=== PATIENT | male | born 1985 | race Caucasian/White ===

== ENCOUNTER 2017-04-03 12:08 | Emergency (ER) | payer SELFPAY ==
[~2017-04-03] VITALS: Ht 177.8 cm; Wt 68.0 kg
[~2017-04-03 12:08] MED LIST: ACET325S8 PO; TAMS0.4C67 PO
[2017-04-03 12:10] VITALS: BP 108/74; PULSE 78; RESP 16; TEMP 98.2; O2SAT 98
--- NOTE | 2017-04-03 12:21 | PD ---
Physical Exam Time Seen by Provider: 12:19 Narrative 31yo M c/o of laceration to left juarez after falling approx 5 feet off a ladder today. Denies hitting head, LOC, neck pain, back pain. +R rib cage pain, R forearm pain. Denies SOB. Reports pain with deep breathing. [place] lightheaded after fall, but denies now. Patient seen in triage. VS reviewed. Patient awaiting bed placement. Data Data Last Documented VS Vital Signs Date Time Temp Pulse Resp B/P Pulse Ox O2 Delivery O2 Flow Rate FiO2 04/03/17 12:10 98.2 78 16 108/74 98 MDM Supervised Visit with MIGUEL ANGEL: Geovanna Burleson Apr 03, 2017 12:21
[2017-04-03] MEDS ORDERED: ACETAMINOPHEN/HYDROcodone 325 MG/5 MG TAB PO ONE ×2 (13:30→15:15)
[2017-04-03] MEDS ORDERED: LIDOCAINE 1%/EPINEPHrine 1:100,000 SOLN 20 ML VIAL INFIL ONE (13:30)
[2017-04-03] MEDS ORDERED: KETOROLAC TROMETHAMINE 30 MG/ML (IVP) VIAL IVP ONE (13:30)
[2017-04-03] MEDS ORDERED: TETANUS/DIPHTHERIA TOXOID ADULT 0.5 ML VIAL IM ONE (13:30)
--- NOTE | 2017-04-03 13:38 | PD ---
HPI Chief Complaint: Fall Time Seen by Provider: 13:28 Travel History International Travel<30 days: No Contact w/Intl Traveler<30days: No Traveled to known affect area: No History of Present Illness HPI Patient comes in for evaluation status post fall from ladder. He states he was standing top of for 6 foot ladder when part of the roof that he was working on fell hitting him in the left juarez causing him to lose his balance falling off a ladder landing on his right rib cage and forearm on the ladder. Patient complaining of pain over his left tibia, right forearm, and right rib cage. Patient describes pain is sharp stabbing like in nature is worse with palpation and certain movement. Patient uncertain of his last tetanus shot. Patient denies doing anything for this prior to coming to the emergency department. Denies hitting his head, loss conscious, back pain, neck pain, abdominal pain, or shortness of breath. Patient reports rib pain is worse with deep inspiration certain movement. PFSH Past Medical History Arthritis: No Asthma: No Autoimmune Disease: No Blood Disorders: No Heart Rhythm Problems: No Cancer: No Cardiovascular Problems: No High Cholesterol: No Chest Pain: No Congestive Heart Failure: No COPD: No Cerebrovascular Accident: No Diabetes: No Diminished Hearing: No Endocrine: No Gastrointestinal Disorders: Yes (stomach pain with diarrhea) GERD: No Glaucoma: No Genitourinary: Yes (KIDNEY STONES) Headaches: No Hepatitis: Yes (hep c) Hiatal Hernia: No Hypertension: No Immune Disorder: No Inguinal Hernia: Yes (RIGHT GROIN REPAIRED) Kidney Stones: Yes Musculoskeletal: Yes (fx both wrists age 14 & 15 & 28, broken jaw, broken ribs ) Neurologic: No Psychiatric: No Reproductive: No Respiratory: No Immunizations Current: Yes Migraines: Yes Myocardial Infarction: No Renal Failure: No Seizures: No Sleep Apnea: No Thyroid Disease: No Ulcer: No Tetanus Vaccination: < 5 Years Influenza Vaccination: Yes Past Surgical History Abdominal Surgery: Yes (hernia RIGHT GROIN) AICD: No Body Medical Devices: metal in jaw and r wrist, RIGHT KIDNEY STENT Cardiac Surgery: No Ear Surgery: Yes Endocrine Surgery: No Eye Surgery: No Genitourinary Surgery: Yes (lithotripsy X 2, STENT) Gynecologic Surgery: No Joint Replacement: No Neurologic Surgery: No Oral Surgery: Yes (fx. jaw 2004) Pacemaker: No Thoracic Surgery: No Tonsillectomy: Yes Other Surgery: Yes (PINS AND PLATE IN BILATERAL WRIST) Social History Alcohol Use: No Tobacco Use: Yes (/2 PPD) Substance Use: No (marijuana occasionally ) Allergies-Medications (Allergen,Severity, Reaction): Coded Allergies: Morphine (Verified Allergy, Mild, rash, 04/03/17) Uncoded Allergies: icy hot (Adverse Reaction, Mild, Rash., 06/12/16) Reported Meds & Prescriptions Reported Meds & Active Scripts Active Bactrim DS (Sulfamethoxazole-Trimethoprim) 800-160 Mg Tab 1 Tab PO BID Lortab (Hydrocodone-Acetaminophen) 5-325 Mg Tab 1 Tab PO Q8HR PRN Ibuprofen 800 Mg Tab 800 Mg PO Q8H PRN Tylenol (Acetaminophen) 325 Mg Tab 650 Mg PO Q6HR PRN Flomax (Tamsulosin HCl) 0.4 Mg Cap 0.4 Mg PO DAILY 10 Days Review of Systems Except as stated in HPI: all other systems reviewed are Neg Physical Exam Narrative GENERAL: Well-developed, well nourished, in no acute distress, and non-ill appearing. SKIN: Laceration noted left anterior juarez. No obvious foreign body or bony involvement noted. Patient reports tenderness to palpation around. Contusion of the right forearm. Patient's reported pain around site of contusion. There is no crepitus or step-off noted. HEAD: Atraumatic. Normocephalic. EYES: Pupils equal and round. EOMI. No scleral icterus. No injection or drainage. ENT: No nasal bleeding or discharge. Mucous membranes pink and moist. NECK: Trachea midline. Supple. No nuclear rigidity. CARDIOVASCULAR: Regular rate and rhythm. No murmur appreciated. Radial dorsal pulses are 2+, intact, and equal bilaterally. Capillary refill less than 2 seconds. RESPIRATORY: No accessory muscle use. No respiratory distress. Clear to auscultation. Breath sounds equal bilaterally. GASTROINTESTINAL: Abdomen soft, non-tender, nondistended. Hepatic and splenic margins not palpable. No pulsatile mass. MUSCULOSKELETAL: No obvious deformities. No clubbing. No cyanosis. No edema. Full range of motion. Nontender to palpation bilateral elbows. Wrist: FROM and equal BL with passive flexion, extension, and pronation/supination. Capillary refill less than 2 seconds distal to injury and equal BL. FROM distal to injury and equal BL. Strength distal to injury equal BL. NV intact distal to injury. Flexion and extension of thumb equal BL. Equal strength and movement with abduction/adductions of BL fingers. Preparation Room Worker strength equal BL. No tenderness to the anatomical snuffbox. Ankle: Neagative anterior draw and Lieberman test. Negative Buddy's sign. No laxity noted with passive inversion and eversion of BL ankles. Negative squeeze test. Pulses equal BL distal to injury. Capillary refill less than 2 seconds distal to injury and equal BL. Sensation equal BL 1st web space. FROM of toes distal to injury and equal BL. NV intact distal to injury and equal BL. Dorsal pulses equal BL. Patient reports tenderness over the midshaft right ulna small bump noted. There is no crepitus or step-off noted. Patient reports tenderness to palpation over right lateral rib cage. There is no crepitus or step-off. Patient reports tenderness palpation around laceration left juarez. No tenderness or crepitus throughout spinal column. Pelvic stable. NEUROLOGICAL: Awake and alert. No obvious cranial nerve deficits. Motor grossly within normal limits. Normal speech. PSYCHIATRIC: Appropriate mood and affect; insight and judgment normal. Data Data Last Documented VS Vital Signs Date Time Temp Pulse Resp B/P Pulse Ox O2 Delivery O2 Flow Rate FiO2 04/03/17 12:53 18 99 Room Air 04/03/17 12:10 98.2 78 108/74 Orders Acetamin-Hydrocod 325-5 Mg ([place] 5-325 (04/03/17 13:30) Ketorolac Inj (Toradol Inj) (04/03/17 13:30) Tetanus/Diphtheria Tox Adult (Tetanus/Di (04/03/17 13:30) Lidocai-Epi 1%-1:100,000 Inj (Xylocaine- (04/03/17 13:30) Resp Incentive Spirometry (04/03/17 ) Ribs, Uni (W/Exp Cxr-Min 3vw) (04/03/17 ) Tibia/Fibula (Ap/Lat) (04/03/17 ) Forearm (2vws) (04/03/17 ) Lidocai-Epi 1%-1:100,000 Inj (Xylocaine- (04/03/17 14:13) Acetamin-Hydrocod 325-5 Mg ([place] 5-325 (04/03/17 15:15) MDM Medical Decision Making Medical Screen Exam Complete: Yes Emergency Medical Condition: Yes Interpretation(s) Rib x-rays read by the radiologist shows: No evidence of acute fracture. Right forearm x-ray read by the radiologist shows: Old distal radius and ulna fractures with internal fixation plate in the distal radius. No acute fracture identified. X-ray of the left tib-fib read by the radiologist shows: No evidence of fracture. Differential Diagnosis Fracture, strain, contusion, laceration, open fracture, foreign body, pneumothorax, other Narrative Course The patient suffered a rib contusion. There is no clinical evidence to suggest intrathoracic injury nor cardiac injury at this time. The patient has no significant pain, shortness of breath or dyspnea. The patient moves air well without difficulty and is clear to auscultation. Heart sounds are audible without rubs, murmurs or gallops. There is no palpable crepitus. Pulses are symmetrical and strong. There is no significant tenderness over the lower chest to suggest injury to the liver nor spleen. Chest X-ray was normal without evidence of fracture, pneumothorax or hemothorax. The Mediastinum appeared within normal limits. Diagnosis was discussed with the patient. The patient is to return if develops any worsening pain difficulty breathing, or if coughs up blood or develops fever. Patient agrees with plan and was recommended to follow up with their regular physician. The patient appears to have suffered a contusion of the right forearm. There is no clinical evidence to suspect bony injury by exam. Radiographic examination revealed no fracture seen at this time. The patient has full range of motion on active and passive motions. There is no significant edema. There is no proximal or distal joint effusion. The distal extremity appears neurovascularly intact, without evidence of neurovascular injury nor compartment syndrome. Tendon exam also was intact. The patient was discharged on pain medication instructions and given warnings for vascular compromise. The patient is to follow up with their regular physician. The patient agrees with plan. The patient suffered laceration to the leg. There was no evidence to suggest foreign bodies. Visual, tactile and radiographic exams were unremarkable without evidence of foreign body at this time. There was no evidence of neurovascular injury. The patient had a normal distal vascular exam, and had full normal motor and sensory exams. There was also no evidence or tendon injury , with normal distal full range of motions, flexion, extension, abduction, adduction and opponens. There was no evidence of local joint space involvement at this time. The patient was irrigated with copious sterile normal saline and primary repair was performed. Please see procedure note. The patient was given signs and symptom warnings for infection, such as increasing pain, redness, swelling, associated heat, pus or fever. The patient was warned of possible unseen foreign body and instructed to return immediately if signs or symptoms develop. The patient was given instructions for timely follow up and for removal. The patient agreed with plan of care. Patient in no obvious distress upon re-evaluation. All pertinent Radiology result(s) discussed with patient. Discussed patient with Dr. Velasquez prior to discharge, who is in agreement with plan of care and disposition. Patient was asked if they wanted to speak to my attending, which the patient did not wish to do at this time. Any questions/concerns in reference to patient diagnosis/ condition discussed and clarified prior to patient's discharge. Reinforced sheer importance of close follow up with patient's primary physician or primary care clinic. Instructed patient to return to ED immediately, if symptoms return/ worsen. Pt showed understanding of above instructions. Further instructions and recommendations were detailed in discharge paperwork. Pt ambulated without difficulty out of ED at discharge. Procedures Procedure Narrative LACERATION REPAIR LOCATION: Left juarez LENGTH: Approximately 7 cm in total length NUMBER OF STITCHES/MEDHAT: 12 Medhat REPAIR: Verbal consent was obtained. The area of the laceration was cleaned and prepped. The laceration was infiltrated with a cane with epi. The wound was copiously irrigated and explored without evidence of foreign body, bony involvement, ligament injury, tendon injury, or neurovascular injury. The wound was closed using medhat. This was a single layer repair. A sterile dressing was applied by nurse. The patient was advised to keep the affected area as clean and dry as possible using soap and water. There were no complications. Patient tolerated the procedure well. Diagnosis Primary Impression: Contusion of rib on right side Qualified Code: S20.211A - Contusion of rib on right side, initial encounter Additional Impressions: Contusion of right forearm, initial encounter Laceration of left lower leg without complication Qualified Code: S81.812A - Laceration of left lower leg without complication, initial encounter Fall on and from ladder, initial encounter Patient Instructions: Contusion in Adults (ED), Fall Prevention (ED), General Instructions, Laceration (ED), Narcotic given in the ED, Rib Contusion (ED) Additional Instructions: Follow-up with your primary care physician or return here in 10-14 days for staple removal. Follow up with your primary care doctor next week for reevaluation of contusions. Take all medication as prescribed. Apply ice to affected area 20 is presently for pain. Use incentive spirometer 10 times per hour as instructed to decrease chances of pneumonia. Keep wound dry and clean as possible using soap and water. Use Neosporin to promote healing. Do not soak or submerge wound. Return to the emergency department if symptoms get worse. Med/Other Pt SpecificInfo: Prescription(s) given Scripts Sulfamethoxazole-Trimethoprim (Bactrim DS)800-160 Mg Tab1 Tab PO BID #14 TAB Ref 0 Prov:Laverne Velasquez MD 04/03/17 Hydrocodone-Acetaminophen (Lortab)5-325 Mg Tab1 Tab PO Q8HR PRN (PAIN GREATER THAN 7) #9 TAB Ref 0 Prov:Laverne Velasquez MD 04/03/17 Ibuprofen 800 Mg [id number] Mg PO Q8H PRN (PAIN SCALE 1 TO 10) #20 TAB Ref 0 Prov:Laverne Velasquez MD 04/03/17 Disposition: 01 DISCHARGE HOME Condition: Stable Bruno Ariza Apr 03, 2017 13:38
[2017-04-03] MEDS ORDERED: LIDOCAINE 1%/EPINEPHrine 1:100,000 SOLN 30 ML VIAL ONE (14:13)
--- NOTE | 2017-04-03 15:03 | RADRPT ---
EXAM DATE/TIME: 04/03/2017 13:44 [facility] COMPARISON: No previous studies available for comparison. INDICATIONS : Right forearm pain; scaffolding fell on top of patient. MEDICAL HISTORY : None. SURGICAL HISTORY : ORIF right wrist. ENCOUNTER: Initial ACUITY: 1 day PAIN SCORE: 5/10 LOCATION: Right forearm. FINDINGS: 2 views right forearm. Volar internal fixation plate of the distal radius. Old healed distal radius f racture. Old ulnar styloid fracture. No evidence of acute fracture. CONCLUSION: Old distal radius and ulna fractures with internal fixation plate in the distal radius. No acute frac ture identified. Sanya Cody MD on April 03, 2017 at 15:00 Board Certified Radiologist. This report was verified electronically.
--- NOTE | 2017-04-03 15:04 | RADRPT ---
EXAM DATE/TIME: 04/03/2017 13:47 [facility] COMPARISON: No previous studies available for comparison. INDICATIONS : Left lower leg laceration; scaffolding fell on top of patient. MEDICAL HISTORY : None. SURGICAL HISTORY : None. ENCOUNTER: Initial ACUITY: 1 day PAIN SCORE: 10/10 LOCATION: Left lower leg FINDINGS: 2 views of the left tibia and fibula. Bone alignment within normal limits. No evidence of fracture. CONCLUSION: No evidence of fracture. Sanya Cody MD on April 03, 2017 at 15:01 Board Certified Radiologist. This report was verified electronically.
--- NOTE | 2017-04-03 15:05 | RADRPT ---
EXAM DATE/TIME: 04/03/2017 13:50 [facility] COMPARISON: No previous studies available for comparison. INDICATIONS : Right sided rib pain; scaffolding fell on top of patient. MEDICAL HISTORY : None. SURGICAL HISTORY : None. ENCOUNTER: Initial ACUITY: 1 day PAIN SCORE: 10/10 LOCATION: Right ribs FINDINGS: Multiple views of the right ribs were performed. Multiple old left-sided rib fractures. There is no e vidence of displaced fracture. No destructive lesions or areas of periosteal thickening are seen. E xpiratory view of the chest is negative for pneumothorax. The mediastinal structures are midline. CONCLUSION: No evidence of acute fracture. Sanya Cody MD on April 03, 2017 at 15:02 Board Certified Radiologist. This report was verified electronically.
[2017-04-03] MEDS ORDERED: BACT800T5 PO (15:17)
[2017-04-03] MEDS ORDERED: IBUP800T23 PO (15:17)
[2017-04-03] MEDS ORDERED: HYDR-3533 PO (15:17)
[2017-04-03 15:30] VITALS: RESP 18
== END 2017-04-03 16:07 | disposition home or self-care (01) ==
LOC: NEPD 12:08
DX: S81.812A Laceration without foreign body, left lower leg, initial encounter (principal); S20.211A Contusion of right front wall of thorax, initial encounter; F17.210 Nicotine dependence, cigarettes, uncomplicated; Z23 Encounter for immunization; S50.11XA Contusion of right forearm, initial encounter; W11.XXXA Fall on and from ladder, initial encounter; Y93.89 Activity, other specified; Y92.89 Other specified places as the place of occurrence of the external cause; Y99.8 Other external cause status
CPT/HCPCS: 12002; 71101; 73090; 73590; 90471; 90714; 96374; 99284; J1885

== ENCOUNTER 2017-05-03 19:05 | Emergency (ER) | payer SELFPAY ==
[~2017-05-03] VITALS: Ht 172.7 cm; Wt 70.0 kg
[~2017-05-03 19:05] MED LIST changes: +BACT800T5 PO; +HYDR-3533 PO; +IBUP800T23 PO
[2017-05-03 19:12] VITALS: BP 131/82; PULSE 87; RESP 22; TEMP 99.7; O2SAT 98
[2017-05-03] MEDS ORDERED: KETOROLAC TROMETHAMINE 30 MG/ML (IVP) VIAL IV PUSH ONE (19:30)
[2017-05-03] MEDS ORDERED: ACETAMINOPHEN/HYDROcodone 325 MG/10 MG TAB PO ONE (19:30)
[2017-05-03 19:51] VITALS: O2SAT 98
--- NOTE | 2017-05-03 20:15 | PD ---
HPI Chief Complaint: Fall Time Seen by Provider: 20:09 Travel History International Travel<30 days: No Contact w/Intl Traveler<30days: No Traveled to known affect area: No History of Present Illness HPI 32-year-old male that presents to the ED for evaluation of right rib pain after fall. Patient states that he had a fall today to go. Patient injured the ribs. Patient states that he sign an injury before about a month ago when he fell into that same side and was told that he had some rib fractures. Per patient his been doing well approximated discharge until 2 days ago when he fell. He denies any left-sided chest pain. He states that he is having difficulty breathing secondary to the pain as the pain makes it hard for him to breathe. Denies any urinary or bowel movement issues. No fevers chills or sweats. Patient does have a history of IV drug abuse and he states that he used Dilaudid about a week ago. He denies any recent use. Per patient his pain is 8 out of 10. Gets worse with deep breaths. Denies any history of cardiac disease. Allergy to morphine and icy hot PFSH Past Medical History Arthritis: No Asthma: No Autoimmune Disease: No Blood Disorders: No Heart Rhythm Problems: No Cancer: No Cardiovascular Problems: No High Cholesterol: No Chest Pain: No Congestive Heart Failure: No COPD: No Cerebrovascular Accident: No Diabetes: No Diminished Hearing: No Endocrine: No Gastrointestinal Disorders: Yes (stomach pain with diarrhea) GERD: No Glaucoma: No Genitourinary: Yes (KIDNEY STONES) Headaches: No Hepatitis: Yes (hep c) Hiatal Hernia: No Hypertension: No Immune Disorder: No Inguinal Hernia: Yes (RIGHT GROIN REPAIRED) Kidney Stones: Yes Musculoskeletal: Yes (fx both wrists age 14 & 15 & 28, broken jaw, broken ribs ) Neurologic: No Psychiatric: No Reproductive: No Respiratory: No Immunizations Current: Yes Migraines: Yes Myocardial Infarction: No Renal Failure: No Seizures: No Sleep Apnea: No Thyroid Disease: No Ulcer: No Tetanus Vaccination: < 5 Years Influenza Vaccination: Yes Past Surgical History Abdominal Surgery: Yes (hernia RIGHT GROIN) AICD: No Body Medical Devices: metal in jaw and r wrist, RIGHT KIDNEY STENT Cardiac Surgery: No Ear Surgery: Yes Endocrine Surgery: No Eye Surgery: No Genitourinary Surgery: Yes (lithotripsy X 2, STENT) Gynecologic Surgery: No Joint Replacement: No Neurologic Surgery: No Oral Surgery: Yes (fx. jaw 2004) Pacemaker: No Thoracic Surgery: No Tonsillectomy: Yes Other Surgery: Yes (PINS AND PLATE IN BILATERAL WRIST) Social History Alcohol Use: No Tobacco Use: Yes Substance Use: No Allergies-Medications (Allergen,Severity, Reaction): Coded Allergies: Morphine (Verified Allergy, Mild, rash, 04/03/17) Uncoded Allergies: icy hot (Adverse Reaction, Mild, Rash., 06/12/16) Reported Meds & Prescriptions Reported Meds & Active Scripts Active Lortab (Hydrocodone-Acetaminophen) 5-325 Mg Tab 1 Tab PO Q6H PRN Ibuprofen 800 Mg Tab 800 Mg PO Q8H PRN Bactrim DS (Sulfamethoxazole-Trimethoprim) 800-160 Mg Tab 1 Tab PO BID Lortab (Hydrocodone-Acetaminophen) 5-325 Mg Tab 1 Tab PO Q8HR PRN Tylenol (Acetaminophen) 325 Mg Tab 650 Mg PO Q6HR PRN Flomax (Tamsulosin HCl) 0.4 Mg Cap 0.4 Mg PO DAILY 10 Days Review of Systems Except as stated in HPI: all other systems reviewed are Neg Physical Exam Narrative GENERAL: SKIN: Warm and dry. Patient has a healing scar on the left lower leg that is about 5 cm. Patient has [address] No sign of erythema or mass or infection. HEAD: Atraumatic. Normocephalic. EYES: Pupils equal and round 4mms reactive to light and accomodation. No scleral icterus. No injection or drainage. ENT: No nasal bleeding or discharge. Mucous membranes pink and moist. tongue is midline, no uvula deviation NECK: Trachea midline. No JVD. CARDIOVASCULAR: Regular rate and rhythm. no murmurs, s3, s4. reproducible pain on the right rib cage, no obvious deformity. RESPIRATORY: No accessory muscle use. Clear to auscultation. Breath sounds equal bilaterally. GASTROINTESTINAL: Abdomen soft, non-tender, nondistended. Hepatic and splenic margins not palpable. MUSCULOSKELETAL: Extremities without clubbing, cyanosis, or edema. No obvious deformities. Full range of motion of the upper and lower extremities bilaterally. 2+ pulses bilaterally. No lumbar, thoracic, cervical spine tenderness to palpation. NEUROLOGICAL: Awake and alert. No obvious cranial nerve deficits. Motor grossly within normal limits. Five out of 5 muscle strength in the arms and legs. Normal speech. PSYCHIATRIC: Appropriate mood and affect; insight and judgment normal. Data Data Last Documented VS Vital Signs Date Time Temp Pulse Resp B/P Pulse Ox O2 Delivery O2 Flow Rate FiO2 05/03/17 19:51 98 05/03/17 19:16 22 Room Air 05/03/17 19:12 99.7 87 131/82 Orders Electrocardiogram (05/03/17 19:16) Complete Blood Count With Diff (05/03/17 19:16) Basic Metabolic Panel (Bmp) (05/03/17 19:16) Blood Culture (05/03/17 19:16) Iv Access Insert/Monitor (05/03/17 19:16) Ecg Monitoring (05/03/17 19:16) Oximetry (05/03/17 19:16) Ribs, Uni (W/Exp Cxr-Min 3vw) (05/03/17 ) Ketorolac Inj (Toradol Inj) (05/03/17 19:30) Acetamin-Hydrocod 325-10 Mg ([place] 10-32 (05/03/17 19:30) Resp Incentive Spirometry (05/03/17 ) Labs Laboratory Tests Test 05/03/17 19:30 White Blood Count 9.3 TH/MM3 Red Blood Count 5.15 MIL/MM3 Hemoglobin 15.0 GM/DL Hematocrit 43.2 % Mean Corpuscular Volume 83.9 FL Mean Corpuscular Hemoglobin 29.2 PG Mean Corpuscular Hemoglobin 34.8 % Concent Red Cell Distribution Width 14.6 % Platelet Count 257 TH/MM3 Mean Platelet Volume 8.4 FL Neutrophils (%) (Auto) 69.7 % Lymphocytes (%) (Auto) 21.0 % Monocytes (%) (Auto) 8.2 % Eosinophils (%) (Auto) 0.2 % Basophils (%) (Auto) 0.9 % Neutrophils # (Auto) 6.5 TH/MM3 Lymphocytes # (Auto) 2.0 TH/MM3 Monocytes # (Auto) 0.8 TH/MM3 Eosinophils # (Auto) 0.0 TH/MM3 Basophils # (Auto) 0.1 TH/MM3 CBC Comment DIFF FINAL Differential Comment Sodium Level 135 MEQ/L Potassium Level 3.5 MEQ/L Chloride Level 105 MEQ/L Carbon Dioxide Level 25.1 MEQ/L Anion Gap 5 MEQ/L Blood Urea Nitrogen 5 MG/DL Creatinine 0.80 MG/DL Estimat Glomerular Filtration 113 ML/MIN Rate Random Glucose 131 MG/DL Calcium Level 9.0 MG/DL [facility] Medical Decision Making Medical Screen Exam Complete: Yes Emergency Medical Condition: Yes Medical Record Reviewed: Yes Interpretation(s) EKG shows sinus rhythm with no sign of acute ischemia or arrhythmia. read by me and attending. Xray of the ribs shows fracture of right 8th rib, otherwise old fractures CBC & BMP Diagram 05/03/17 19:30 Differential Diagnosis Chest pain versus rib pain versus fracture versus pneumothorax versus IV drug abuse versus abscess versus mass versus infection Narrative Course 32-year-old male that presents to the ED for evaluation of right-sided chest pain. Patient was properly examined and was found to have signs and symptoms consistent appears to be referred injury. Labs and imaging ordered. Patient was given IV Toradol and 1 Lortab. Labs and imaging showed fracture of the a rib. Otherwise unremarkable. This time I believe this is likely the source of his pain. Patient feels improved after pain medication. At this time patient will be sent home with a prescription for Lortab and ibuprofen. Patient was told to apply ice or warm compresses to the area of pain. Avoid extraneous activity. Close follow with PCP. See ED worsening symptoms. Stop using drugs. Case discussed with my attending who agrees with plan. Diagnosis Primary Impression: Rib fracture Qualified Code: S22.31XA - Closed fracture of one rib of right side, initial encounter Patient Instructions: Narcotic given in the ED, General Instructions Departure Forms: Tests/Procedures, Work Release Enter return to work date: May 07, 2017 Additional Instructions: Take medications as prescribed. Follow-up with PCP. See ED for any worsening symptoms. Do not drink or drive while taking pain medication. Apply ice or heat as needed for pain Med/Other Pt SpecificInfo: Prescription(s) given Scripts Hydrocodone-Acetaminophen (Lortab)5-325 Mg Tab1 Tab PO Q6H PRN (PAIN) #15 TAB Ref 0 Prov:Armen Weir MD 05/03/17 Ibuprofen 800 Mg [id number] Mg PO Q8H PRN (PAIN SCALE 1 TO 10) #20 TAB Ref 0 Prov:Armen Weir MD 05/03/17 Disposition: 01 DISCHARGE HOME Condition: Stable Gómez Lang May 03, 2017 20:15 Gómez Lang May 03, 2017 20:15
[2017-05-03 20:23] LABS: AUTOMATED NEUTROPHIL # 6.5 TH/MM3 (1.8-7.7); BASOPHIL # 0.1 TH/MM3 (0-0.2); BASOPHIL % 0.9 % (0.0-2.0); EOSINOPHIL % 0.2 % (0.0-4.0); HEMATOCRIT 43.2 % (39.0-51.0); HEMO FLAGS DIFF FINAL; MEAN CELL VOLUME 83.9 FL (80.0-100.0); MEAN CORPUSCULAR HEMOGLOBIN 29.2 PG (27.0-34.0); MEAN CORPUSCULAR HGB CONC 34.8 % (32.0-36.0); MONO % 8.2 % (0.0-8.0); NEUT % 69.7 % (16.0-70.0); PLATELET COUNT 257 TH/MM3 (150-450); RED BLOOD COUNT 5.15 MIL/MM3 (4.50-5.90); RED CELL DISTRIBUTION WIDTH 14.6 % (11.6-17.2); WHITE BLOOD COUNT 9.3 TH/MM3 (4.0-11.0)
--- NOTE | 2017-05-03 20:38 | RADRPT ---
EXAM DATE/TIME: 05/03/2017 19:54 [facility] COMPARISON: RIBS RIGHT(W PA CXR MIN 3VWS), April 03, 2017, 13:50. INDICATIONS : Right sided pain after fall a few days ago. Pain in lower posterior right ribs. MEDICAL HISTORY : Prior fractures to left ribs. SURGICAL HISTORY : None. ENCOUNTER: Initial ACUITY: 3 days PAIN SCORE: 10/10 LOCATION: Right ribs. FINDINGS: There are old rib fractures seen bilaterally. There is a more acute appearing fracture seen at the [facility] eighth rib. Expiratory view of the chest is negative for pneumothorax. The mediastinal structure s are midline. CONCLUSION: There is an acute appearing right eighth rib fracture. Multiple other rib fractures are again seen. Can Faria MD on May 03, 2017 at 20:32 Board Certified Radiologist. This report was verified electronically.
[2017-05-03 20:44] LABS: BICARBONATE 25.1 MEQ/L (21.0-32.0); POTASSIUM 3.5 MEQ/L (3.5-5.1)
[2017-05-03] MEDS ORDERED: HYDR-3533 PO (20:58)
[2017-05-03] MEDS ORDERED: IBUP800T23 PO (20:58)
[2017-05-03 21:15] VITALS: BP 134/78
--- NOTE | 2017-05-04 13:21 | EKG ---
Date Performed: 05/03/2017 Time Performed: 19:27:32 PTAGE: 32 years EKG: Sinus rhythm SEPTAL MYOCARDIAL INFARCTION ABNORMAL ECG NO PREVIOUS TRACING DOCTOR: Maribel Samson Interpretating Date/Time 05/04/2017 13:18:33
== END 2017-05-03 21:18 | disposition home or self-care (01) ==
LOC: NEPE 19:05
DX: S22.31XA Fracture of one rib, right side, initial encounter for closed fracture (principal); Z72.0 Tobacco use; R94.31 Abnormal electrocardiogram [ECG] [EKG]; W19.XXXA Unspecified fall, initial encounter
CPT/HCPCS: 71101; 80048; 85025; 87040; 87205; 93005; 96374; 99285; J1885

== ENCOUNTER 2017-05-05 19:41 | Inpatient (IN) | payer SELFPAY ==
[~2017-05-05] VITALS: Ht 172.7 cm; Wt 68.3 kg
[2017-05-05 19:43] VITALS: BP 118/66; PULSE 92; RESP 16; TEMP 98.9; O2SAT 100
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
[2017-05-05] MEDS ORDERED: PIPERACIL-TAZO 3.375 GM PREMIX 50 ML IV ONE (21:00)
[2017-05-05] MEDS ORDERED: SODIUM CHLOR 0.9% 1000 ML INJ 1,000 ML IV ONE (21:00)
[2017-05-05] MEDS ORDERED: VANCOMYCIN INJ 1,000 MG in SODIUM CHLOR 0.9% 250 ML INJ 250 ML IV ONE (21:00)
[2017-05-05] MEDS ORDERED: KETOROLAC TROMETHAMINE 30 MG/ML (IVP) VIAL IV PUSH ONE (21:00)
--- NOTE | 2017-05-05 21:01 | RADRPT ---
EXAM DATE/TIME: 05/05/2017 20:42 [facility] COMPARISON: No previous studies available for comparison. INDICATIONS : Right sided chest/rib pain after fall. MEDICAL HISTORY : None. SURGICAL HISTORY : None. ENCOUNTER: [facility] ACUITY: 1 week PAIN SCORE: 8/10 LOCATION: Right chest FINDINGS: A single view of the chest demonstrates the lungs to be symmetrically aerated without evidence of mas s, infiltrate or effusion. The cardiomediastinal contours are unremarkable. Osseous structures are intact. CONCLUSION: The lungs are clear. No evidence of pneumothorax. Neel Robert MD on May 05, 2017 at 20:58 Board Certified Radiologist. This report was verified electronically.
[2017-05-05 21:14] LABS: BASOPHIL # 0.1 TH/MM3 (0-0.2); BASOPHIL % 0.7 % (0.0-2.0); EOSINOPHIL % 0.1 % (0.0-4.0); HEMATOCRIT 41.5 % (39.0-51.0); HEMO FLAGS DIFF FINAL; LYMPH % 19.4 % (9.0-44.0); LYMPHOCYTE # 2.7 TH/MM3 (1.0-4.8); MEAN CELL VOLUME 84.4 FL (80.0-100.0); MEAN CORPUSCULAR HEMOGLOBIN 28.7 PG (27.0-34.0); MONO % 8.1 % (0.0-8.0); NEUT % 71.7 % (16.0-70.0); PLATELET COUNT 291 TH/MM3 (150-450); RED BLOOD COUNT 4.92 MIL/MM3 (4.50-5.90); RED CELL DISTRIBUTION WIDTH 14.6 % (11.6-17.2); WHITE BLOOD COUNT 13.9 TH/MM3 (4.0-11.0)
[2017-05-05 21:31] LABS: APTT (PATIENT) 31.7 SEC (24.3-30.1); PROTHROMBIN TIME - PATIENT 10.9 SEC (9.8-11.6)
[2017-05-05 21:32] LABS: ANION GAP 10 MEQ/L (5-15); AST (GOT) 17 U/L (15-37); BICARBONATE 24.2 MEQ/L (21.0-32.0); BLOOD UREA NITROGEN 10 MG/DL (7-18); CHLORIDE 102 MEQ/L (98-107); GLOMERULAR FILTRATION RATE 85 ML/MIN (>89); POTASSIUM 3.2 MEQ/L (3.5-5.1); SODIUM (NA) 136 MEQ/L (136-145)
[2017-05-05 21:34] LABS: ALT (GPT) 52 U/L (12-78)
[2017-05-05 21:37] LABS: ALKALINE PHOSPHATASE 99 U/L (45-117); TOTAL BILIRUBIN ADULT 0.6 MG/DL (0.2-1.0)
[2017-05-05 21:43] LABS: CREATINE KINASE 56 U/L (39-308)
[2017-05-05] MEDS ORDERED: Vancomycin Consult Pharmacy 1 EA OTHER SCH (22:15)
[2017-05-05] MEDS ORDERED: SENNOSIDES 8.6 MG TAB PO PRN (22:15)
[2017-05-05] MEDS ORDERED: BISACODYL 10 MG SUPP RECTAL PRN (22:15)
[2017-05-05] MEDS ORDERED: LACTULOSE SYRUP 20 GM/30 ML CUP PO PRN (22:15)
[2017-05-05] MEDS ORDERED: SODIUM CHLORIDE 0.9% FLUSH 10 ML FLUSH IV FLUSH PRN (22:15)
[2017-05-05] MEDS ORDERED: ONDANSETRON HCL 4 MG/2 ML VIAL IVP PRN (22:15)
[2017-05-05] MEDS ORDERED: MAGNESIUM HYDROXIDE SUSP 30 ML CUP PO PRN (22:15)
--- NOTE | 2017-05-05 22:16 | HHI.HP ---
[facility] Primary Care Physician Admission Diagnosis Diagnoses: (1) Bacteremia Diagnosis: Principal (2) Wound infection Diagnosis: Principal (3) Failure of outpatient treatment Diagnosis: Principal (4) Rib fracture Diagnosis: Principal (5) IVDU (intravenous drug user) Diagnosis: Principal (6) Tobacco abuse Diagnosis: Principal Travel History International Travel<30 Days: No Contact w/Intl Traveler <30 Da: No Traveled to Known Affected Are: No History of Present Illness This is a 32-year-old male with a PMH of Hepatitis C, Renal Stones and IVDU who was called back to the ER after positive blood cultures. Presented to ER on 04/03 after fall from ladder while at work w/ rib fracture and left lower extremity laceration, s/p laceration repair and d/c'd w/ Bactrim and Lortab and instructed to follow up in 10-14 days for staple removal however he did not. Returned to ER on 05/03/17 following another fall with complaints of rib pain, found to have right eighth rib fracture and previous rib fractures again noted. Reports redness/pain to LLE and removed most of the diana himself. Also notes subjective fever/chills. Blood Cultures 05/03/17 positive for Gram Postive Rods 1/2, pt called and instructed to come to ER. On arrival, BP 118/66, HR 92 , O2 sat R RA, Afebrile. WBC 13.9. Chemistry essentially unremarkable except for K+ 3.2. GFR 85. CXR with no acute findings. Remaining diana removed in ER, wound red w/ some yellow discharge, s/p Wound Cultures, Vanc/Zosyn and repeat BC. Review of Systems Except as stated in HPI: all other systems reviewed are Neg ROS: 14 point review of systems otherwise negative. Past Family Social History Past Medical History PMH: Hepatitis C, Renal Stones and IVDU Past Surgical History PAST SURGICAL HISTORY: ORIF Right Wrist, Jaw Surgery, Lithotripsy, Right Inguinal Hernia Repair, Tonsillectomy Allergies: Coded Allergies: Morphine (Verified Allergy, Mild, rash, 05/05/17) Uncoded Allergies: icy hot (Adverse Reaction, Mild, Rash., 06/12/16) Family History PAST FAMILY HISTORY: Reviewed. No h/o DM or CAD Social History PAST SOCIAL HISTORY: Occasional alcohol. Positive for tobacco. +IVDU w/ Dilaudid. Physical Exam Vital Signs Vital Signs Date Time Temp Pulse Resp B/P Pulse Ox O2 Delivery O2 Flow Rate FiO2 05/05/17 20:15 98 Room Air 05/05/17 19:43 98.9 92 16 118/66 100 Physical Exam PE: GENERAL: Middle-aged white male in no acute distress. HEENT: PERRLA, EOMI. No scleral icterus or conjunctival pallor. No lid lag or facial droop. CARDIOVASCULAR: Regular rate and rhythm. No obvious murmurs to auscultation. No chest tenderness to palpation. RESPIRATORY: No obvious rhonchi or wheezing. Clear to auscultation. Breath sounds equal bilaterally. GASTROINTESTINAL: Abdomen soft, non-tender, nondistended. BS normal. MUSCULOSKELETAL: Extremities without clubbing, cyanosis, or edema. No obvious deformities. LLE w/ laceration, s/p staple removal, +surrounding erythema/mild edema, +yellow drainage. NEUROLOGICAL: Awake, alert and oriented x4. No focal neurologic deficits. Moving both upper and lower extremities spontaneously. Laboratory Laboratory Tests Test 05/05/17 20:53 White Blood Count 13.9 Red Blood Count 4.92 Hemoglobin 14.1 Hematocrit 41.5 Mean Corpuscular Volume 84.4 Mean Corpuscular Hemoglobin 28.7 Mean Corpuscular Hemoglobin 34.0 Concent Red Cell Distribution Width 14.6 Platelet Count 291 Mean Platelet Volume 8.0 Neutrophils (%) (Auto) 71.7 Lymphocytes (%) (Auto) 19.4 Monocytes (%) (Auto) 8.1 Eosinophils (%) (Auto) 0.1 Basophils (%) (Auto) 0.7 Neutrophils # (Auto) 10.0 Lymphocytes # (Auto) 2.7 Monocytes # (Auto) 1.1 Eosinophils # (Auto) 0.0 Basophils # (Auto) 0.1 CBC Comment DIFF FINAL Differential Comment Erythrocyte Sedimentation Rate 42 Prothrombin Time 10.9 Prothromb Time International 1.0 Ratio Activated Partial 31.7 Thromboplast Time Sodium Level 136 Potassium Level 3.2 Chloride Level 102 Carbon Dioxide Level 24.2 Anion Gap 10 Blood Urea Nitrogen 10 Creatinine 1.02 Estimat Glomerular Filtration 85 Rate Random Glucose 102 Lactic Acid Level 1.5 Calcium Level 8.9 Total Bilirubin 0.6 Aspartate Amino Transf 17 (AST/SGOT) Alanine Aminotransferase 52 (ALT/SGPT) Alkaline Phosphatase 99 Total Creatine Kinase 56 Troponin I LESS THAN 0.02 C-Reactive Protein 14.00 B-Type Natriuretic Peptide 7 Total Protein 7.7 Albumin 3.2 Date/Time Procedure Status Source Growth 05/05/17 21:24 Gram Stain Received Wound Leg Pending 05/05/17 21:24 Wound Culture Received Wound Leg Pending 05/05/17 20:53 Aerobic Blood Culture Received Blood Peripheral Pending 05/05/17 20:53 Anaerobic Blood Culture Received Blood Peripheral Pending Result Diagram: 05/05/17205205/05/172052 Assessment and Plan Problem List: (1) Bacteremia ICD Code: R78.81 Status: Acute (2) Wound infection ICD Code: T14.8 Status: Acute (3) Failure of outpatient treatment ICD Code: Z78.9 Status: Acute (4) IVDU (intravenous drug user) ICD Code: F19.90 Status: Acute (5) Rib fracture ICD Code: S22.39XA Status: Acute (6) Tobacco abuse ICD Code: Z72.0 Status: Acute Assessment and Plan A/P: 1. Bacteremia: S/p Blood Cultures 05/03/17 on previous ER visit, called by lab and instructed to come to ER for positive blood cultures. Cultures 1/2 positive for Gram Positive Rods, pending further ID. S/p Vanc/Zosyn in ER, will continue w/ IV Abx, repeat Blood Cultures sent, will follow. 2. Wound Infection: s/p laceration to LLE following fall from ladder 04/03/17, s /p diana and Bactrim which he completed, now w/ redness/drainage, failed outpatient tx, majority of diana removed by patient, 2 left over diana removed by ER physician today. Wound Cultures sent, will follow. Continue w/ IV Abx as above. 3. Rib Fx: Acute Right 8th Rib Fx on recent presentation 05/03/17, previous left -sided rib cultures s/p fall 04/03/17. CXR 05/05/17 w/ no acute findings, images reviewed by me 4. IVDU: w/ Dilaudid. Ativan prn for agitation/withdrawal. 5. Tobacco Abuse: Pt counselled. Ativan/NicoDerm prn if needed. 6. DVT Prophylaxis: Mechanical contraindication secondary to lower extremity wound. 7. Social work for d/c planning as needed. 8. Case discussed w/ ER physician at length. Physician Certification 2 Midnight Certification Type: Admission for Inpatient Services Order for Inpatient Services The services are ordered in accordance with Medicare regulations or non- Medicare payer requirements, as applicable. In the case of services not specified as inpatient-only, they are appropriately provided as inpatient services in accordance with the 2-midnight benchmark. Estimated LOS (days): 2 days is the estimated time the patient will need to remain in the hospital, assuming treatment plan goals are met and no additional complications. Post-Hospital Plan: Not yet determined Merary De Paz MD May 05, 2017 22:16
[2017-05-05] MEDS: SODIUM CHLOR 0.9% 1000 ML INJ 1,000 ML IV SCH (23:07)
[2017-05-05] MEDS ORDERED: VANCOMYCIN INJ 750 MG in SODIUM CHLOR 0.9% 250 ML INJ 250 ML IV ONE (23:30)
[2017-05-05 23:55] VITALS: BP 105/64; PULSE 68; RESP 16; TEMP 98.4; O2SAT 97
[2017-05-06] VITALS (7 sets, daily range): BP systolic 116–131; BP diastolic 67–87; PULSE 67–106; RESP 16–18; TEMP 100.4–103; O2SAT 96–98
[2017-05-06] MEDS: ACETAMINOPHEN 325 MG TAB PO PRN ×2 (05:26→21:52)
[2017-05-06 06:17] LABS: AUTOMATED NEUTROPHIL # 5.9 TH/MM3 (1.8-7.7); BASOPHIL # 0.1 TH/MM3 (0-0.2); BASOPHIL % 0.5 % (0.0-2.0); EOSINOPHIL # 0.1 TH/MM3 (0-0.4); EOSINOPHIL % 0.7 % (0.0-4.0); HEMATOCRIT 40.1 % (39.0-51.0); HEMO FLAGS DIFF FINAL; LYMPH % 28.3 % (9.0-44.0); LYMPHOCYTE # 2.7 TH/MM3 (1.0-4.8); MEAN CELL VOLUME 86.1 FL (80.0-100.0); MEAN CORPUSCULAR HEMOGLOBIN 28.8 PG (27.0-34.0); MEAN CORPUSCULAR HGB CONC 33.4 % (32.0-36.0); MONO % 9.8 % (0.0-8.0); NEUT % 60.7 % (16.0-70.0); PLATELET COUNT 235 TH/MM3 (150-450); RED BLOOD COUNT 4.65 MIL/MM3 (4.50-5.90); RED CELL DISTRIBUTION WIDTH 14.7 % (11.6-17.2); WHITE BLOOD COUNT 9.7 TH/MM3 (4.0-11.0)
[2017-05-06 06:32] LABS: ALKALINE PHOSPHATASE 87 U/L (45-117); ALT (GPT) 48 U/L (12-78); ANION GAP 8 MEQ/L (5-15); AST (GOT) 28 U/L (15-37); BICARBONATE 22.8 MEQ/L (21.0-32.0); BLOOD UREA NITROGEN 8 MG/DL (7-18); CHLORIDE 110 MEQ/L (98-107); GLOMERULAR FILTRATION RATE 104 ML/MIN (>89); POTASSIUM 3.5 MEQ/L (3.5-5.1); SODIUM (NA) 141 MEQ/L (136-145); TOTAL BILIRUBIN ADULT 0.5 MG/DL (0.2-1.0)
[2017-05-06] MEDS: SODIUM CHLOR 0.9% 1000 ML INJ 1,000 ML IV SCH ×2 (08:12→20:50)
[2017-05-06] MEDS: DOCUSATE SODIUM 50 MG/SENNA 8.6 MG TAB PO SCH ×2 (08:41→20:51)
[2017-05-06] MEDS: SODIUM CHLORIDE 0.9% FLUSH 10 ML FLUSH IV FLUSH SCH ×2 (08:42→20:50)
[2017-05-06] MEDS ORDERED: CEFEPIME INJ 1,000 MG in SODIUM CHLORIDE 0.9% INJ 100 ML IV SCH (09:00)
[2017-05-06] MEDS ORDERED: IBUPROFEN 800 MG TAB PO ONE (09:15)
--- NOTE | 2017-05-06 10:32 | PD.PN.STU ---
Subjective Remarks Patient is a 32 year old male with hx of ivdu, hep C, and nephrolithiasis returning for positive blood cultures obtained on 05/03/2017. At that time he presented with fevers and chills, as well as a one month old left lower leg laceration and right sided chest pain due to fall one month prior. Cxr showed a right 8th rib fracture with multiple healed prior rib fractures. Lortab provided minimal relief. Today he states the fevers and chills have subsided. Right rib pain makes it difficult to breath deeply. Left leg laceration painful to touch and mildly erythematous. Patient is concerned with possibility of "heart infection" due to positive blood cultures. Patient states last ivdu one month ago. No prior infections from drug use stated. Objective Vitals Vital Signs Date Time Temp Pulse Resp B/P Pulse Ox O2 Delivery O2 Flow Rate FiO2 05/06/17 07:15 Room Air 05/06/17 05:12 100.7 83 16 120/87 97 05/06/17 00:30 67 05/05/17 23:55 98.4 68 16 105/64 97 05/05/17 23:55 Room Air 05/05/17 20:15 98 Room Air 05/05/17 19:43 98.9 92 16 118/66 100 I/O 05/05/17 05/05/17 05/05/17 05/06/17 05/06/17 05/06/17 07:00 15:00 23:00 07:00 15:00 23:00 Intake Total 1809 ml Output Total 100 ml Balance 1709 ml Intake Oral 720 ml IV Total 1089 ml Output Urine Total 100 ml # Bowel Movements 0 Result Diagram: 05/06/17 0440 05/06/17 0440 Other Results Laboratory Tests Test 05/05/17 05/06/17 20:53 04:40 White Blood Count 13.9 TH/MM3 9.7 TH/MM3 (4.0-11.0) (4.0-11.0) Red Blood Count 4.92 MIL/MM3 4.65 MIL/MM3 (4.50-5.90) (4.50-5.90) Hemoglobin 14.1 GM/DL 13.4 GM/DL (13.0-17.0) (13.0-17.0) Hematocrit 41.5 % 40.1 % (39.0-51.0) (39.0-51.0) Mean Corpuscular Volume 84.4 FL 86.1 FL (80.0-100.0) (80.0-100.0) Mean Corpuscular Hemoglobin 28.7 PG 28.8 PG (27.0-34.0) (27.0-34.0) Mean Corpuscular Hemoglobin 34.0 % 33.4 % Concent (32.0-36.0) (32.0-36.0) Red Cell Distribution Width 14.6 % 14.7 % (11.6-17.2) (11.6-17.2) Platelet Count 291 TH/MM3 235 TH/MM3 (150-450) (150-450) Mean Platelet Volume 8.0 FL 8.2 FL (7.0-11.0) (7.0-11.0) Neutrophils (%) (Auto) 71.7 % 60.7 % (16.0-70.0) (16.0-70.0) Lymphocytes (%) (Auto) 19.4 % 28.3 % (9.0-44.0) (9.0-44.0) Monocytes (%) (Auto) 8.1 % (0.0-8.0) 9.8 % (0.0-8.0) Eosinophils (%) (Auto) 0.1 % (0.0-4.0) 0.7 % (0.0-4.0) Basophils (%) (Auto) 0.7 % (0.0-2.0) 0.5 % (0.0-2.0) Neutrophils # (Auto) 10.0 TH/MM3 5.9 TH/MM3 (1.8-7.7) (1.8-7.7) Lymphocytes # (Auto) 2.7 TH/MM3 2.7 TH/MM3 (1.0-4.8) (1.0-4.8) Monocytes # (Auto) 1.1 TH/MM3 1.0 TH/MM3 (0-0.9) (0-0.9) Eosinophils # (Auto) 0.0 TH/MM3 0.1 TH/MM3 (0-0.4) (0-0.4) Basophils # (Auto) 0.1 TH/MM3 0.1 TH/MM3 (0-0.2) (0-0.2) CBC Comment DIFF FINAL DIFF FINAL Differential Comment Erythrocyte Sedimentation Rate 42 mm/hr (0-15) Prothrombin Time 10.9 SEC (9.8-11.6) Prothromb Time International 1.0 RATIO Ratio Activated Partial 31.7 SEC Thromboplast Time (24.3-30.1) Sodium Level 136 MEQ/L 141 MEQ/L (136-145) (136-145) Potassium Level 3.2 MEQ/L 3.5 MEQ/L (3.5-5.1) (3.5-5.1) Chloride Level 102 MEQ/L 110 MEQ/L (98-107) (98-107) Carbon Dioxide Level 24.2 MEQ/L 22.8 MEQ/L (21.0-32.0) (21.0-32.0) Anion Gap 10 MEQ/L (5-15) 8 MEQ/L (5-15) Blood Urea Nitrogen 10 MG/DL (7-18) 8 MG/DL (7-18) Creatinine 1.02 MG/DL 0.86 MG/DL (0.60-1.30) (0.60-1.30) Estimat Glomerular Filtration 85 ML/MIN (>89) 104 ML/MIN Rate (>89) Random Glucose 102 MG/DL 87 MG/DL (74-106) (74-106) Lactic Acid Level 1.5 mmol/L (0.4-2.0) Calcium Level 8.9 MG/DL 8.5 MG/DL (8.5-10.1) (8.5-10.1) Total Bilirubin 0.6 MG/DL 0.5 MG/DL (0.2-1.0) (0.2-1.0) Aspartate Amino Transf 17 U/L (15-37) 28 U/L (15-37) (AST/SGOT) Alanine Aminotransferase 52 U/L (12-78) 48 U/L (12-78) (ALT/SGPT) Alkaline Phosphatase 99 U/L (45-117) 87 U/L (45-117) Total Creatine Kinase 56 U/L (39-308) Troponin I LESS THAN 0.02 NG/ML (0.02-0.05) C-Reactive Protein 14.00 MG/DL (0.00-0.30) B-Type Natriuretic Peptide 7 PG/ML (0-100) Total Protein 7.7 GM/DL 6.9 GM/DL (6.4-8.2) (6.4-8.2) Albumin 3.2 GM/DL 2.6 GM/DL (3.4-5.0) (3.4-5.0) Allergies Coded Allergies Type Severity Reaction Last Updated Verified Morphine Allergy Mild rash 05/05/17 Yes Uncoded Allergies Type Severity Reaction Last Updated Verified icy hot Adverse Reaction Mild Rash. 06/12/16 Active Scripts Medications Dose Route/Sig Days Date Category Lortab (Hydrocodone-Acetaminophen) 5-325 Mg Tab 1 Tab PO Q6H PRN 05/03/17 Rx Ibuprofen 800 Mg Tab 800 Mg PO Q8H PRN 05/03/17 Rx Bactrim DS (Sulfamethoxazole-Trimethoprim) 800-160 Mg Tab 1 Tab PO BID 04/03/17 Rx Lortab (Hydrocodone-Acetaminophen) 5-325 Mg Tab 1 Tab PO Q8HR PRN 04/03/17 Rx Tylenol (Acetaminophen) 325 Mg Tab 650 Mg PO Q6HR PRN 06/12/16 Rx Flomax (Tamsulosin HCl) 0.4 Mg Cap 0.4 Mg PO DAILY 10 06/12/16 Rx Imaging Microbiology Date/Time Procedure Status Source Growth 05/05/17 20:53 Aerobic Blood Culture Received Blood Peripheral Pending 05/05/17 20:53 Anaerobic Blood Culture Received Blood Peripheral Pending 05/05/17 20:53 Aerobic Blood Culture Received Blood Peripheral Pending 05/05/17 20:53 Anaerobic Blood Culture Received Blood Peripheral Pending 05/05/17 21:24 Gram Stain - Final Resulted Wound Leg 05/05/17 21:24 Wound Culture Resulted Wound Leg Pending Objective Remarks GENERAL: Well-nourished, well-developed patient. SKIN: Warm and dry. left lower leg laceration healing without drainage HEAD: Normocephalic. EYES: No scleral icterus. No injection or drainage. NECK: Supple, trachea midline. No JVD or lymphadenopathy. CARDIOVASCULAR: Regular rate and rhythm without murmurs, gallops, or rubs. RESPIRATORY: Breath sounds equal bilaterally.Difficulty with deep inspiration due to rib fracture GASTROINTESTINAL: Abdomen soft, non-tender, nondistended. EXTREMITIES: No cyanosis, or edema. NEUROLOGICAL: Awake, alert, and oriented x 3. Non-focal. Medications and IVs Current Medications Medications (Trade) Dose Ordered Sig/Nayeli Route PRN Reason Start Time Stop Time Status Last Admin Dose Admin Pharmacy Profile Note 0 ml @ 0 mls/hr UNSCH OTHER 05/05/17 22:15 Cefepime HCl 1000 mg/Sodium Chloride 100 ml @ 200 mls/hr Q12H IV 05/06/17 09:00 05/06/17 08:42 Sodium Chloride (NS 1000 ml Inj) 1,000 ml @ 100 mls/hr Q10H IV 05/05/17 22:12 05/05/17 23:07 Sodium Chloride (NS Flush) 2 ml UNSCH PRN IV FLUSH FLUSH AFTER USING IV ACCESS 05/05/17 22:15 Sodium Chloride (NS Flush) 2 ml BID IV FLUSH 05/06/17 09:00 Ondansetron HCl (Zofran Inj) 4 mg Q6H PRN IVP NAUSEA OR VOMITING 05/05/17 22:15 Acetaminophen (Tylenol) 650 mg Q6H PRN PO FEVER/PAIN SCALE 1 TO 2 05/05/17 22:15 05/06/17 05:26 Oxycodone HCl (Roxicodone) 10 mg Q4H PRN PO PAIN SCALE 6 TO 10 05/05/17 22:15 05/06/17 05:25 Oxycodone HCl (Roxicodone) 5 mg Q4H PRN PO PAIN SCALE 3 TO 5 05/05/17 22:15 Senna/Docusate Sodium (Krysta-Colace) 1 tab BID PO 05/06/17 09:00 05/06/17 08:41 Magnesium Hydroxide (Milk Of Magnnatasha Liq) 30 ml Q12H PRN PO MILD - MODERATE CONSTIPATION 05/05/17 22:15 Sennosides (Senokot) 17.2 mg Q12H PRN PO MODERATE - SEVERE CONSTIPATION 05/05/17 22:15 Bisacodyl (Dulcolax Supp) 10 mg DAILY PRN RECTAL SEVERE CONSITIPATION 05/05/17 22:15 Lactulose 30 ml 30 ml DAILY PRN PO SEVERE CONSITIPATION 05/05/17 22:15 Vancomycin HCl/ Sodium Chloride (Vancomycin Inj/ NS 500 ml Inj) 515 ml @ 250 mls/hr Q12H IV 05/06/17 11:00 Miscellaneous Information SPECIFIC LAB TO BE DRAWN:VANCOMYCIN TROUGH DATE TO... ONCE ONCE .XX 05/07/17 10:45 05/07/17 10:46 A/P Assessment and Plan 1) Positive blood cultures- Gram positive rods (05/03/2017) Broad spectrum abx initiated (Vancomycin Cefepime), will adjust pending culture sensitivity Echocardiogram ordered to evaluate possible cardiac vegetation with possible ID and Cardiology consultation PIC line placement Additional blood cultures drawn 05/05/2017 2) Rib Fracture Supportive measures Incentive spirometry Pain management with non-narcotic due to prior hx of ivdu 3) Leg laceration Wound culture positive for rare gram positive cocci, likely responsive to current abx regiment Monitor for further signs of infection 4) Hep C CMP and LFT to evaluate progression of disease Supportive care Cynthia Urrutia M3 May 06, 2017 10:32
[2017-05-06] MEDS ORDERED: VANCOMYCIN INJ 1,500 MG in SODIUM CHLORID 0.9% 500 ML INJ 500 ML IV SCH (11:00)
--- NOTE | 2017-05-06 11:24 | HHI.PR ---
Subjective Remarks Patient seen in follow-up for positive blood cultures. Fever up to 103 this morning. He reports difficulty with breathing secondary to rib pain. He is concerned about infection spreading to his heart. Objective Vitals Vital Signs Date Time Temp Pulse Resp B/P Pulse Ox O2 Delivery O2 Flow Rate FiO2 05/06/17 08:01 103.0 101 18 121/70 98 05/06/17 08:00 104 05/06/17 07:15 Room Air 05/06/17 05:12 100.7 83 16 120/87 97 05/06/17 00:30 67 05/05/17 23:55 98.4 68 16 105/64 97 05/05/17 23:55 Room Air 05/05/17 20:15 98 Room Air 05/05/17 19:43 98.9 92 16 118/66 100 I/O 05/05/17 05/05/17 05/05/17 05/06/17 05/06/17 05/06/17 07:00 15:00 23:00 07:00 15:00 23:00 Intake Total 1809 ml Output Total 100 ml Balance 1709 ml Intake Oral 720 ml IV Total 1089 ml Output Urine Total 100 ml # Bowel Movements 0 Result Diagram: 05/06/17 0440 05/06/17 0440 Imaging Last Impressions Chest X-Ray 05/05/172020 Signed Impressions: Service Date/Time: Friday, May 05, 2017 20:42 - CONCLUSION: The lungs are clear. No evidence of pneumothorax. Neel Robert MD Objective Remarks GENERAL: This is a well-nourished, well-developed patient, in no apparent distress. SKIN: Left juarez laceration is healing without drainage or surrounding erythema CARDIOVASCULAR: Normal rate and regular rhythm without murmurs, gallops, or rubs. RESPIRATORY: Good respiratory efforts. Breath sounds equal and clear to auscultation bilaterally. GASTROINTESTINAL: Abdomen soft, non-tender, non-distended. Normal active bowel sounds MUSCULOSKELETAL: Extremities without cyanosis, or edema. NEURO: Alert & Oriented x4 to person, place, time, situation. Moves all ext x4 PSYCH: Appropriate mood and affect. A/P Problem List: (1) Bacteremia ICD Code: R78.81 Status: Acute (2) Wound infection ICD Code: T14.8 Status: Acute (3) Failure of outpatient treatment ICD Code: Z78.9 Status: Acute (4) IVDU (intravenous drug user) ICD Code: F19.90 Status: Acute (5) Rib fracture ICD Code: S22.39XA Status: Acute (6) Tobacco abuse ICD Code: Z72.0 Status: Acute Assessment and Plan 32-year-old male IV drug user admitted to the hospital after he was called back for positive blood cultures. Bacteremia: Blood cultures from 05/03/17 growing bacillus, called by lab and instructed to come to ER for positive blood cultures.S/p Vanc/Zosyn in ER, will continue w/ IV Abx, repeat Blood Cultures sent. Given persistent fever, consult infectious disease for antibiotics recommendations. Obtain 2-D echocardiogram. Wound Infection: Improving. S/p laceration to LLE following fall from ladder , s/p diana and Bactrim which he completed, with redness and drainage on admission, failed outpatient tx, majority of diana removed by patient, 2 left over diana removed by ER physician on presentation. Wound Cultures sent, will follow. Continue w/ IV Abx as above. Rib fracture: Acute Right 8th Rib Fx on recent presentation 05/03/17, previous left-sided rib cultures s/p fall 04/03/17. CXR 05/05/17 unremarkable. Continue supportive care with pain control, incentive spirometry IVDU: w/ Dilaudid. Avoid IV narcotics. Continue oxycodone when necessary. Patient extensively counseled Tobacco Abuse: Pt counselled. Ativan/NicoDerm prn if needed. DVT Prophylaxis: Patient is ambulatory. Darian Ross MD May 06, 2017 11:23
[2017-05-06] MEDS: REMOVE OLD PATCH T-DERMAL SCH (12:00)
--- NOTE | 2017-05-06 13:14 | EKG ---
Date Performed: 05/05/2017 Time Performed: 23:35:39 PTAGE: 32 years EKG: Sinus rhythm NORMAL ECG INTERPRETATION BASED ON A DEFAULT AGE OF 40 YEARS PREVIOUS TRACING : 05/03/2017 19.27 Compared to prior tracing no significant change DOCTOR: Wilfredo Garcia Interpretating Date/Time 05/06/2017 13:11:31
[2017-05-06] MEDS: NICOTINE 21 MG/24 HR PATCH T-DERMAL SCH (13:22)
--- NOTE | 2017-05-06 16:14 | PD.ID.CON ---
History of Present Illness Service Infectious disease Consult Requested By Dr. De Paz Reason for Consult Evaluation and management of bacteremia and MRSA wound infection in an IV drug abuser. Primary Care Physician No Primary Care Physician Diagnoses: History of Present Illness This is a 32-year-old male with a PMH of Hepatitis C, Renal Stones and IVDU who was called back to the ER after positive blood cultures. Presented to ER on 04/03 after fall from ladder while at work w/ rib fracture and left lower extremity laceration, s/p laceration repair and d/c'd w/ Bactrim and Lortab and instructed to follow up in 10-14 days for staple removal however he did not. Returned to ER on 05/03/17 following another fall with complaints of rib pain, found to have right eighth rib fracture and previous rib fractures again noted. Reports redness/pain to LLE and removed most of the diana himself. Also notes subjective fever/chills. Blood Cultures 05/03/17 positive for Gram Postive Rods 11/04, pt called and instructed to come to ER. On arrival, BP 118/66, HR 92 , O2 sat R RA, Afebrile. WBC 13.9. Chemistry essentially unremarkable except for K+ 3.2. GFR 85. CXR with no acute findings. Remaining diana removed in ER, wound red w/ some yellow discharge, s/p Wound Cultures, Vanc/Zosyn and repeat BC. Past Family Social History Allergies: Coded Allergies: Morphine (Verified Allergy, Mild, rash, 05/05/17) *MDRO Multi-Drug Resistant Organism (Verified Adverse Reaction, Unknown, ) MRSA (leg) 05/05/17 Uncoded Allergies: icy hot (Adverse Reaction, Mild, Rash., 06/12/16) Past Medical History Hepatitis C, Renal Stones and IVDU Past Surgical History ORIF Right Wrist, Jaw Surgery, Lithotripsy, Right Inguinal Hernia Repair, Tonsillectomy Reported Medications Reported Meds & Active Scripts Active Lortab (Hydrocodone-Acetaminophen) 5-325 Mg Tab 1 Tab PO Q6H PRN Ibuprofen 800 Mg Tab 800 Mg PO Q8H PRN Bactrim DS (Sulfamethoxazole-Trimethoprim) 800-160 Mg Tab 1 Tab PO BID Lortab (Hydrocodone-Acetaminophen) 5-325 Mg Tab 1 Tab PO Q8HR PRN Tylenol (Acetaminophen) 325 Mg Tab 650 Mg PO Q6HR PRN Flomax (Tamsulosin HCl) 0.4 Mg Cap 0.4 Mg PO DAILY 10 Days Active Ordered Medications Current Medications Medications (Trade) Dose Ordered Sig/Nayeli Route Start Time Stop Time Status Last Admin (NS 1000 ml Inj) 1,000 ml @ 100 mls/hr Q10H IV 05/05/17 22:12 05/06/17 08:12 (NS Flush) 2 ml UNSCH PRN IV FLUSH 05/05/17 22:15 (NS Flush) 2 ml BID IV FLUSH 05/06/17 09:00 (Zofran Inj) 4 mg Q6H PRN IVP 05/05/17 22:15 (Tylenol) 650 mg Q6H PRN PO 05/05/17 22:15 05/06/17 05:26 (Roxicodone) 10 mg Q4H PRN PO 05/05/17 22:15 05/06/17 14:47 (Roxicodone) 5 mg Q4H PRN PO 05/05/17 22:15 (Krysta-Colace) 1 tab BID PO 05/06/17 09:00 05/06/17 08:41 (Milk Of Magnesia Liq) 30 ml Q12H PRN PO 05/05/17 22:15 (Senokot) 17.2 mg Q12H PRN PO 05/05/17 22:15 (Dulcolax Supp) 10 mg DAILY PRN RECTAL 05/05/17 22:15 (Lactulose Liq) 30 ml DAILY PRN PO 05/05/17 22:15 (Habitrol 21 Mg Patch.24 Hr) 1 patch DAILY T-DERMAL 05/06/17 12:00 05/06/17 13:22 Miscellaneous Information 1 1 DAILY T-DERMAL 05/06/17 12:00 (Cubicin Inj/NS Inj) 100 ml @ 200 mls/hr Q24H IV 05/06/17 18:00 Family History Reviewed. No h/o DM or CAD Social History Occasional alcohol. Positive for tobacco. +IVDU w/ Dilaudid. Physical Exam Vital Signs Vital Signs Date Time Temp Pulse Resp B/P Pulse Ox O2 Delivery O2 Flow Rate FiO2 05/06/17 12:01 100.4 92 18 116/67 98 05/06/17 08:01 103.0 101 18 121/70 98 05/06/17 08:00 104 05/06/17 07:15 Room Air 05/06/17 05:12 100.7 83 16 120/87 97 05/06/17 00:30 67 05/05/17 23:55 98.4 68 16 105/64 97 05/05/17 23:55 Room Air 05/05/17 20:15 98 Room Air 05/05/17 19:43 98.9 92 16 118/66 100 Physical Exam GENERAL: This is a well-nourished, well-developed patient, in no apparent distress. SKIN: No rashes, ecchymoses or lesions. Cool and dry. HEAD: Atraumatic. Normocephalic. No temporal or scalp tenderness. EYES: Pupils equal round and reactive. Extraocular motions intact. No scleral icterus. No injection or drainage. ENT: Nose without bleeding, purulent drainage or septal hematoma. Throat without erythema, tonsillar hypertrophy or exudate. Uvula midline. Airway patent. NECK: Trachea midline. Supple, nontender, no meningeal signs. CARDIOVASCULAR: Regular rate and rhythm without murmurs, gallops, or rubs. RESPIRATORY: Clear to auscultation. Breath sounds equal bilaterally. No wheezes , rales, or rhonchi. GASTROINTESTINAL: Abdomen soft, non-tender, nondistended. No hepato-splenomegaly , or palpable masses. No guarding. MUSCULOSKELETAL: On the right lower extremity there is a linear laceration about 3.5 cm in length with scabbing noted over it as well as minimal tenderness minimal induration if any. NEUROLOGICAL: Awake and alert. Grossly nonfocal. Psych cooperative IV line sites with no e.o infection. Laboratory Laboratory Tests Test 05/05/17 05/06/17 20:53 04:40 White Blood Count 13.9 9.7 Red Blood Count 4.92 4.65 Hemoglobin 14.1 13.4 Hematocrit 41.5 40.1 Mean Corpuscular Volume 84.4 86.1 Mean Corpuscular Hemoglobin 28.7 28.8 Mean Corpuscular Hemoglobin 34.0 33.4 Concent Red Cell Distribution Width 14.6 14.7 Platelet Count 291 235 Mean Platelet Volume 8.0 8.2 Neutrophils (%) (Auto) 71.7 60.7 Lymphocytes (%) (Auto) 19.4 28.3 Monocytes (%) (Auto) 8.1 9.8 Eosinophils (%) (Auto) 0.1 0.7 Basophils (%) (Auto) 0.7 0.5 Neutrophils # (Auto) 10.0 5.9 Lymphocytes # (Auto) 2.7 2.7 Monocytes # (Auto) 1.1 1.0 Eosinophils # (Auto) 0.0 0.1 Basophils # (Auto) 0.1 0.1 CBC Comment DIFF FINAL DIFF FINAL Differential Comment Erythrocyte Sedimentation Rate 42 Prothrombin Time 10.9 Prothromb Time International 1.0 Ratio Activated Partial 31.7 Thromboplast Time Sodium Level 136 141 Potassium Level 3.2 3.5 Chloride Level 102 110 Carbon Dioxide Level 24.2 22.8 Anion Gap 10 8 Blood Urea Nitrogen 10 8 Creatinine 1.02 0.86 Estimat Glomerular Filtration 85 104 Rate Random Glucose 102 87 Lactic Acid Level 1.5 Calcium Level 8.9 8.5 Total Bilirubin 0.6 0.5 Aspartate Amino Transf 17 28 (AST/SGOT) Alanine Aminotransferase 52 48 (ALT/SGPT) Alkaline Phosphatase 99 87 Total Creatine Kinase 56 Troponin I LESS THAN 0.02 C-Reactive Protein 14.00 B-Type Natriuretic Peptide 7 Total Protein 7.7 6.9 Albumin 3.2 2.6 Date/Time Procedure Status Source Growth 05/05/17 21:24 Gram Stain - Final Resulted Wound Leg 05/05/17 21:24 Wound Culture - Preliminary Resulted S. Aureus Mrsa 05/05/17 20:53 Aerobic Blood Culture - Preliminary Resulted Blood Peripheral NO GROWTH IN 1 DAY 05/05/17 20:53 Anaerobic Blood Culture - Preliminary Resulted Blood Peripheral NO GROWTH IN 1 DAY Result Diagram: 05/06/170 05/06/17439 Imaging Last Impressions Chest X-Ray 05/05/172020 Signed Impressions: Service Date/Time: Friday, May 05, 2017 20:42 - CONCLUSION: The lungs are clear. No evidence of pneumothorax. Neel Robert MD Assessment and Plan Assessment and Plan Bacillus not antacids bacteremia in an IV drug abuser MRSA wound infection of the right lower extremity History of night sweats ? Chills prior to admission rule out endocarditis IV drug abuse Hepatitis C positive Recommendations: Start daptomycin IV (ASP: Vanco fever) DC Vanco IV Continue Zosyn IV Follow cultures Follow clinically Case discussed with patient and RN Heather Sanchez MD May 06, 2017 16:14
[2017-05-06] MEDS ORDERED: DIATRIZOATE MEGLUM/DIATRIZOATE SOD 9 ML CUP PO ONE (17:30)
[2017-05-06] MEDS: DAPTOMYCIN IV SCH (18:27)
[2017-05-06] MEDS: SODIUM CHLORIDE 0.9% IV SCH (18:27)
[2017-05-06] MEDS ORDERED: IOHEXOL 350 MG/ML 10 ML VIAL (for RAD DIAG) IV ONE (21:29)
--- NOTE | 2017-05-06 21:57 | RADRPT ---
EXAM DATE/TIME: 05/06/2017 21:16 [facility] COMPARISON: RIBS RIGHT(W PA CXR MIN 3VWS), May 03, 2017, 19:54. CHEST SINGLE AP, May 05, 2017, 20:42. INDICATIONS : Evaluate for pneumonia. Right rib fractures. IV CONTRAST: 95 cc Omnipaque 350 (iohexol) IV ; Cumulative dose for multiple exams. RADIATION DOSE: 11.24 CTDIvol (mGy) ; Combined studies - Thorax/Abdomen/Pelvis MEDICAL HISTORY : Hepatitis C. Renal calculi. SURGICAL HISTORY : Inguinal hernia repair. ENCOUNTER: Initial ACUITY: 4 - 6 days PAIN SCALE: 5/10 LOCATION: Right chest TECHNIQUE: Volumetric scanning of the chest was performed. Using automated exposure control and adjustment of t he mA and/or kV according to patient size, radiation dose was kept as low as reasonably achievable to obtain optimal diagnostic quality images. DICOM format image data is available electronically for review and comparison. FINDINGS: LUNGS: There is increased density at the posterior lower lobes bilaterally being more prominent on the right . PLEURA: There is a mild right pleural effusion and a minimal left pleural effusion. MEDIASTINUM: The heart and great vessels demonstrate no acute abnormality. There is no mediastinal or hilar lymph adenopathy. AXILLAE: Within normal limits. No lymphadenopathy. SKELETAL: There is an acute appearing right eighth rib fracture. MISCELLANEOUS: The patient is to have a CT of the abdomen and pelvis to follow. CONCLUSION: 1. Bibasilar areas of consolidation or atelectasis with bilateral effusions. These processes are more prominent on the right. 2. There is a right eighth rib fracture. Can Faria MD on May 06, 2017 at 21:50 Board Certified Radiologist. This report was verified electronically.
--- NOTE | 2017-05-06 22:03 | RADRPT ---
EXAM DATE/TIME: 05/06/2017 21:16 [facility] COMPARISON: No previous studies available for comparison. INDICATIONS : Septic with fever. Evaluate for abscess. IV CONTRAST: 95 cc Omnipaque 350 (iohexol) IV ; Cumulative dose for multiple exams. ORAL CONTRAST: Prescribed oral contrast ingested. RADIATION DOSE: 11.24 CTDIvol (mGy) ; Combined studies - Thorax/Abdomen/Pelvis MEDICAL HISTORY : Hepatitis C. Renal calculi. SURGICAL HISTORY : Inguinal hernia repair. ENCOUNTER: Initial ACUITY: 4 - 6 days PAIN SCALE: 5/10 LOCATION: Right upper quadrant TECHNIQUE: Volumetric scanning of the abdomen and pelvis was performed. Using automated exposure control and ad justment of the mA and/or kV according to patient size, radiation dose was kept as low as reasonably achievable to obtain optimal diagnostic quality images. DICOM format image data is available electro nically for review and comparison. FINDINGS: LOWER LUNGS: There is a mild right pleural effusion and a minimal left effusion with accompanying areas of atelect asis or consolidation at the bases being more prominent on the right. LIVER: There is a small 4 mm hyperdensity in the anterior aspect of the medial segment of the left lobe of t he liver. This is too small to further characterize. Statistically, it likely represents a cyst or he mangioma. SPLEEN: Normal size without lesion. PANCREAS: Within normal limits. KIDNEYS: There are multiple small 2-3 mm nonobstructing left renal stone seen. No hydronephrosis or renal mass es are seen. ADRENAL GLANDS: Within normal limits. VASCULAR: There is no aortic aneurysm. BOWEL/MESENTERY: The stomach, small bowel, and colon demonstrate no acute abnormality. There is no free intraperitone al air or fluid. ABDOMINAL WALL: Within normal limits. RETROPERITONEUM: There is no lymphadenopathy. BLADDER: No wall thickening or mass. REPRODUCTIVE: Within normal limits. INGUINAL: There is no lymphadenopathy or hernia. MUSCULOSKELETAL: There appears to be pars defects at L5 with some degree of spondylolisthesis. CONCLUSION: 1. No acute abnormality seen. 2. Multiple small nonobstructing left renal stones. 3. Pars defect at L5 with spondylolisthesis. Can Faria MD on May 06, 2017 at 21:55 Board Certified Radiologist. This report was verified electronically.
[2017-05-06 23:47] LABS: BLOOD, URINE NEG (NEG); GLUCOSE,URINE NEG (NEG); KETONE, URINE NEG (NEG); NITRITE,URINE NEG (NEG); URINE COLOR LIGHT-YELLOW (YELLW/STRAW)
[2017-05-06 23:59] LABS: COMMENT (UR) CULT NOT INDICATED; CULTURE IF INDICATED CULT NOT INDICATED
[2017-05-07] VITALS (7 sets, daily range): BP systolic 103–133; BP diastolic 63–73; PULSE 84–107; RESP 17–20; TEMP 98.8–101.9; O2SAT 96–100
[2017-05-07] MEDS: SODIUM CHLOR 0.9% 1000 ML INJ 1,000 ML IV SCH ×2 (03:00→09:00)
[2017-05-07 05:29] LABS: HEMATOCRIT 44.8 % (39.0-51.0); MEAN CELL VOLUME 88.5 FL (80.0-100.0); MEAN CORPUSCULAR HEMOGLOBIN 28.4 PG (27.0-34.0); MEAN CORPUSCULAR HGB CONC 32.1 % (32.0-36.0); PLATELET COUNT 260 TH/MM3 (150-450); RED BLOOD COUNT 5.07 MIL/MM3 (4.50-5.90); RED CELL DISTRIBUTION WIDTH 14.7 % (11.6-17.2); REVIEW FLAG FINAL
[2017-05-07 05:42] LABS: POTASSIUM 4.1 MEQ/L (3.5-5.1)
[2017-05-07] MEDS: DOCUSATE SODIUM 50 MG/SENNA 8.6 MG TAB PO SCH ×2 (08:51→21:00)
[2017-05-07] MEDS: NICOTINE 21 MG/24 HR PATCH T-DERMAL SCH (08:53)
[2017-05-07] MEDS: REMOVE OLD PATCH T-DERMAL SCH (08:53)
[2017-05-07] MEDS: SODIUM CHLORIDE 0.9% FLUSH 10 ML FLUSH IV FLUSH SCH ×2 (08:55→21:00)
[2017-05-07] MEDS: ACETAMINOPHEN 325 MG TAB PO PRN ×2 (08:59→18:03)
[2017-05-07] MEDS ORDERED: PHARMACY ORDERED LAB ONE (10:45)
--- NOTE | 2017-05-07 11:23 | HHI.PR ---
Subjective Remarks Patient reports he is feeling okay. No shortness of breath. Objective Vitals Vital Signs Date Time Temp Pulse Resp B/P Pulse Ox O2 Delivery O2 Flow Rate FiO2 05/07/17 08:00 100.9 101 20 133/70 100 05/07/17 08:00 93 05/07/17 07:15 Room Air 05/07/17 04:00 98.9 100 17 129/68 97 05/07/17 00:00 99.6 107 18 126/73 99 05/06/17 20:00 101.9 101 18 131/70 97 05/06/17 20:00 Room Air 05/06/17 20:00 106 05/06/17 16:01 100.4 97 18 120/72 96 05/06/17 12:01 100.4 92 18 116/67 98 I/O 05/06/17 05/06/17 05/06/17 05/07/17 05/07/17 05/07/17 07:00 15:00 23:00 07:00 15:00 23:00 Intake Total 1809 ml 2432 ml 881 ml 942 ml Output Total 100 ml 800 ml 1350 ml 400 ml Balance 1709 ml 1632 ml -469 ml 542 ml Intake Oral 720 ml 380 ml IV Total 1089 ml 2052 ml 881 ml 942 ml Output Urine Total 100 ml 800 ml 1350 ml 400 ml # Bowel Movements 0 0 Result Diagram: 05/07/17 0420 05/07/17 0420 Objective Remarks GENERAL: This is a well-nourished, well-developed patient, in no apparent distress. SKIN: Left juarez laceration is healing without drainage or surrounding erythema CARDIOVASCULAR: Normal rate and regular rhythm without murmurs, gallops, or rubs. RESPIRATORY: Good respiratory efforts. Breath sounds equal and clear to auscultation bilaterally. GASTROINTESTINAL: Abdomen soft, non-tender, non-distended. Normal active bowel sounds MUSCULOSKELETAL: Extremities without cyanosis, or edema. NEURO: Alert & Oriented x4 to person, place, time, situation. Moves all ext x4 PSYCH: Appropriate mood and affect. A/P Problem List: (1) Bacteremia ICD Code: R78.81 Status: Acute (2) Wound infection ICD Code: T14.8 Status: Acute (3) Failure of outpatient treatment ICD Code: Z78.9 Status: Acute (4) IVDU (intravenous drug user) ICD Code: F19.90 Status: Acute (5) Rib fracture ICD Code: S22.39XA Status: Acute (6) Tobacco abuse ICD Code: Z72.0 Status: Acute Assessment and Plan 32-year-old male IV drug user admitted to the hospital after he was called back for positive blood cultures. Bacteremia: Blood cultures from 05/03/17 growing bacillus, called by lab and instructed to come to ER for positive blood cultures. Infectious disease following. Patient currently on daptomycin. 2-D echocardiogram pending. Wound Infection: Improving. Wound culture growing MRSA. S/p laceration to LLE following fall from ladder 04/03/17, s/p diana and Bactrim which he completed, with redness and drainage on admission, failed outpatient tx, majority of diana removed by patient, 2 left over diana removed by ER physician on presentation. Wound Cultures sent, will follow. Continue w/ IV Abx as above. Rib fracture: Acute Right 8th Rib Fx on recent presentation 05/03/17, previous left-sided rib cultures s/p fall 04/03/17. CXR 05/05/17 unremarkable. Continue supportive care with pain control, incentive spirometry IVDU: w/ Dilaudid. Avoid IV narcotics. Continue oxycodone when necessary. Patient extensively counseled Tobacco Abuse: Pt counselled. Ativan/NicoDerm prn if needed. DVT Prophylaxis: Patient is ambulatory. Darian Ross MD May 07, 2017 11:23
--- NOTE | 2017-05-07 14:29 | PD.WCN.NOT ---
Wound Consult Description: Wound Management of LLE per Dr De Paz Communicated with: ZULMA Cason Dr Recommendation: Daily: 1. Cleanse left lower leg wound with NS and gauze after removing Iodoform packing 2. Lightly pack wound with Iodoform leaving a tail outside wound 3. Cover with two 4x4's 4. Secure with rolled gauze and tape 5. Date dressing Additional Information: Patient seen on for wound evaluation of LLE post surgical wound with delayed/stalled healing. Wound was open to air and appeared to be scabbed in an area measuring 4.3cm x ~1cm. When cleansed with NS and gauze the friable dried sanguinous tissue was removed to reveal a wound measuring 1.2cm x 0.7cm x 1cm with undermining distally @6 o'clock of 0.8cm underneath the healed suture line. There is minimal sanguinous/yellow exudate with no odor noted in pink wound bed with friable white tissue. Wound was packed with ~6cm iodoform, with ~ 2cm excess hanging outside of wound for easy removal. This was covered with 4x4 gauze and secured with rolled gauze and tape. Periwound is noted with discoloration from scar tissue and previous diana/sutures. There is no induration or erythema noted to periwound. Katherine Mckeon [facility] May 07, 2017 14:29
--- NOTE | 2017-05-07 14:35 | ECHRPT ---
Indication: endocarditis CONCLUSIONS The transthoracic study is normal by two-dimensional, color flow imaging and Doppler interrogation. BP: 129 / 68 HR: 100 Rhythm: MEASUREMENTS (Male / Female) Normal Values Technical Quality: 2D ECHO LV Diastolic Diameter PLAX 3.2 cm 4.2 - 5.9 / 3.9 - 5.3 cm LV Systolic Diameter PLAX 2.4 cm IVS Diastolic Thickness 1.1 cm 0.6 - 1.0 / 0.6 - 0.9 cm LVPW Diastolic Thickness 1.1 cm 0.6 - 1.0 / 0.6 - 0.9 cm LV Relative Wall Thickness 0.7 RV Internal Dim ED PLAX 2.3 cm M-MODE Aortic Root Diameter MM 3.3 cm LA Systolic Diameter MM 3.3 cm LA Ao Ratio MM 1.0 DOPPLER Mitral E Point Velocity 110.0 cm/s Mitral A Point Velocity 90.9 cm/s Mitral E to A Ratio 1.2 FINDINGS LEFT VENTRICLE Normal left ventricular size and wall thickness. The left ventricular systolic function is normal wi th an estimated ejection fraction in the range of 60-65%. Left ventricular diastolic function parameters a re normal. RIGHT VENTRICLE Normal right ventricular size and systolic function. LEFT ATRIUM The left atrial size is normal. RIGHT ATRIUM The right atrial size is normal. ATRIAL SEPTUM Normal atrial septal thickness without atrial level shunting by limited color doppler interrogation. AORTA The aortic root and proximal ascending aorta are normal in size on limited imaging. MITRAL VALVE Structurally normal mitral valve. No mitral valve stenosis or regurgitation. AORTIC VALVE Trileaflet aortic valve. No aortic valve stenosis or regurgitation. TRICUSPID VALVE Structurally normal tricuspid valve. No tricuspid valve stenosis or regurgitation. PULMONARY VALVE The pulmonary valve is not well visualized. VESSELS The inferior vena cava is normal in size. PERICARDIUM No pericardial effusion. Portillo Rodrigues MD, FACC (Electronically Signed) Final Date:07 May 2017 14:33
--- NOTE | 2017-05-07 15:30 | HHI.PR ---
Addendum to Inpatient Note Addendum Reason: Additional Documentation Additional Information d/w ECHO negative. BCX likely Bacillus is contaminant. MRSA in leg needs to be treated can be treated with oral short course. Await repeat BCX CT with lung findings likely pulm contusion or atelectasis. Continue Antibiotics for now. Heather Sanchez MD May 07, 2017 15:30
[2017-05-07] MEDS: SODIUM CHLORIDE 0.9% IV SCH (18:00)
[2017-05-07] MEDS: DAPTOMYCIN IV SCH (18:00)
[2017-05-08] VITALS (7 sets, daily range): BP systolic 112–129; BP diastolic 54–76; PULSE 75–92; RESP 16–18; TEMP 97.9–101.2; O2SAT 97–100
[2017-05-08] MEDS: ACETAMINOPHEN 325 MG TAB PO PRN ×2 (00:36→08:41)
[2017-05-08] MEDS: SODIUM CHLOR 0.9% 1000 ML INJ 1,000 ML IV SCH ×3 (00:38→23:00)
[2017-05-08 07:49] LABS: HEMATOCRIT 33.2 % (39.0-51.0); MEAN CELL VOLUME 85.3 FL (80.0-100.0); MEAN CORPUSCULAR HEMOGLOBIN 28.3 PG (27.0-34.0); MEAN CORPUSCULAR HGB CONC 33.2 % (32.0-36.0); PLATELET COUNT 274 TH/MM3 (150-450); RED BLOOD COUNT 3.89 MIL/MM3 (4.50-5.90); RED CELL DISTRIBUTION WIDTH 14.4 % (11.6-17.2); REVIEW FLAG FINAL; WHITE BLOOD COUNT 16.4 TH/MM3 (4.0-11.0)
[2017-05-08] MEDS: NICOTINE 21 MG/24 HR PATCH T-DERMAL SCH (08:40)
[2017-05-08] MEDS: REMOVE OLD PATCH T-DERMAL SCH (08:40)
[2017-05-08] MEDS: PIPERACIL-TAZO 4.5 GM PREMIX 100 ML IV SCH ×3 (08:41→21:00)
[2017-05-08] MEDS: SODIUM CHLORIDE 0.9% FLUSH 10 ML FLUSH IV FLUSH SCH ×2 (08:41→21:00)
[2017-05-08] MEDS: DOCUSATE SODIUM 50 MG/SENNA 8.6 MG TAB PO SCH ×2 (08:41→21:00)
--- NOTE | 2017-05-08 09:30 | RADRPT ---
EXAM DATE/TIME: 05/08/2017 08:41 [place] COMPARISON: CT THORAX W CONTRAST, May 06, 2017, 21:16. CHEST SINGLE AP, May 05, 2017, 20:42. INDICATIONS : Evaluate for pneumonia. MEDICAL HISTORY : None. SURGICAL HISTORY : None. ENCOUNTER: Subsequent ACUITY: 4 - 6 days PAIN SCORE: 9/10 LOCATION: Right chest FINDINGS: A single view of the chest demonstrates a mild infiltrate in the right lung base. Otherwise, the lung s are grossly clear. No definite pleural effusions or pulmonary edema. The heart and hilar structures are within normal limits. The bony structures are stable.. CONCLUSION: Mild infiltrate right lung base. Felix Márquez MD on May 08, 2017 at 9:26 Board Certified Radiologist. This report was verified electronically.
--- NOTE | 2017-05-08 11:56 | HHI.PR ---
Subjective Remarks Patient reports is feeling okay this morning. MAXIMUM TEMPERATURE of 101.2 overnight. Still complaining of pleuritic chest pain on the right. Requesting combination medication with Tylenol for pain. Objective Vitals Vital Signs Date Time Temp Pulse Resp B/P Pulse Ox O2 Delivery O2 Flow Rate FiO2 05/08/17 10:26 92 05/08/17 08:48 Room Air 05/08/17 04:00 99.5 84 16 112/67 99 05/08/17 00:00 101.2 92 18 129/76 99 05/07/17 20:00 99.2 87 18 107/63 96 05/07/17 20:00 Room Air 05/07/17 18:00 101.9 05/07/17 16:00 98.8 91 20 118/64 100 05/07/17 12:00 99.0 84 18 103/63 98 I/O 05/07/17 05/07/17 05/07/17 05/08/17 05/08/17 05/08/17 07:00 15:00 23:00 07:00 15:00 23:00 Intake Total 942 ml 1321 ml 360 ml 2550 ml Output Total 400 ml 1300 ml 1400 ml 1000 ml Balance 542 ml 21 ml -1040 ml 1550 ml Intake Oral 480 ml 360 ml 240 ml IV Total 942 ml 841 ml 2310 ml Output Urine Total 400 ml 1300 ml 1400 ml 1000 ml # Voids 1 # Bowel Movements 1 1 0 Result Diagram: 05/08/17 0640 05/07/17 0420 Objective Remarks GENERAL: This is a well-nourished, well-developed patient, in no apparent distress. SKIN: Left juarez wound appear to be healing well. It is packed. Minimal surrounding erythema CARDIOVASCULAR: Normal rate and regular rhythm without murmurs, gallops, or rubs. RESPIRATORY: Good respiratory efforts. Breath sounds equal and clear to auscultation bilaterally. GASTROINTESTINAL: Abdomen soft, non-tender, non-distended. Normal active bowel sounds MUSCULOSKELETAL: Extremities without cyanosis, or edema. NEURO: Alert & Oriented x4 to person, place, time, situation. Moves all ext x4 PSYCH: Appropriate mood and affect. A/P Problem List: (1) Bacteremia ICD Code: R78.81 Status: Acute (2) Wound infection ICD Code: T14.8 Status: Acute (3) Failure of outpatient treatment ICD Code: Z78.9 Status: Acute (4) IVDU (intravenous drug user) ICD Code: F19.90 Status: Acute (5) Rib fracture ICD Code: S22.39XA Status: Acute (6) Tobacco abuse ICD Code: Z72.0 Status: Acute Assessment and Plan 32-year-old male IV drug user admitted to the hospital after he was called back for positive blood cultures. Bacteremia: Blood cultures from 05/03/17 growing bacillus, called by lab and instructed to come to ER for positive blood cultures. Infectious disease following. Patient currently on daptomycin. 2-D echocardiogram unremarkable. Agree with ID, positive blood culture likely contaminant. He did spike a fever and repeat blood cultures were ordered. Will continue to follow. Wound Infection: Improving. Wound culture growing MRSA. S/p laceration to LLE following fall from ladder 04/03/17, s/p diana and Bactrim which he completed, with redness and drainage on admission, failed outpatient tx, majority of diana removed by patient, 2 left over diana removed by ER physician on presentation. Wound Cultures sent, will follow. Continue w/ IV Abx as above. Possible PNA: Likely from persistent atelectasis, rib fracture on the same side. Antibiotics as above.Zosyn was added to daptomycin. Patient encouraged to use IS. Rib fracture: Acute Right 8th Rib Fx on recent presentation 05/03/17, previous left-sided rib cultures s/p fall 04/03/17. CXR 05/05/17 unremarkable. Continue supportive care with pain control, incentive spirometry - Change pain medication to Percocet. IVDU: w/ Dilaudid. Avoid IV narcotics. Patient extensively counseled Tobacco Abuse: Pt counselled. Ativan/NicoDerm prn if needed. DVT Prophylaxis: Patient is ambulatory. Darian Ross MD May 08, 2017 11:56
--- NOTE | 2017-05-08 12:10 | PD.PN.STU ---
Subjective Remarks Patient states he is feeling well aside from being cold. He appears mildly diaphoretic and uncomfortable but does not seem to being having difficulty with deep breathing. He states his leg wound is much more painful after debridement yesterday, and rib pain has not improved significantly since yesterday. He is requesting more frequent nsaid dosing in addition to his opiate pain medication , stating it better relieves his pain. Patient developed a fever of 101.9 yesterday evening. Recent blood cultures pending. Last set blood cultures showed no growth. Echocardiogram showed no abnormalities. Cxr shows possible atelectasis in right lower lung secondary to rib fractures as well as possible pulmonary contusion. Patient instructed and demonstrated use of incentive spirometry. Objective Vitals Vital Signs Date Time Temp Pulse Resp B/P Pulse Ox O2 Delivery O2 Flow Rate FiO2 05/08/17 10:26 92 05/08/17 04:00 99.5 84 16 112/67 99 05/08/17 00:00 101.2 92 18 129/76 99 05/07/17 20:00 99.2 87 18 107/63 96 05/07/17 20:00 Room Air 05/07/17 18:00 101.9 05/07/17 16:00 98.8 91 20 118/64 100 05/07/17 12:00 99.0 84 18 103/63 98 I/O 05/07/17 05/07/17 05/07/17 05/08/17 05/08/17 05/08/17 06:59 14:59 22:59 06:59 14:59 22:59 Intake Total 942 ml 1321 ml 360 ml 2550 ml Output Total 400 ml 1300 ml 1400 ml 1000 ml Balance 542 ml 21 ml -1040 ml 1550 ml Intake Oral 480 ml 360 ml 240 ml IV Total 942 ml 841 ml 2310 ml Output Urine Total 400 ml 1300 ml 1400 ml 1000 ml # Voids 1 # Bowel Movements 1 1 0 Result Diagram: 05/08/17 0640 05/07/17 0420 Other Results Microbiology Date/Time Procedure Status Source Growth 05/08/17 08:30 Aerobic Blood Culture Received Blood Peripheral Pending 05/08/17 08:30 Anaerobic Blood Culture Received Blood Peripheral Pending 05/08/17 08:40 Aerobic Blood Culture Received Blood Peripheral Pending 05/08/17 08:40 Anaerobic Blood Culture Received Blood Peripheral Pending Current Medication Medications (Trade) Dose Ordered Sig/Nayeli Route PRN Reason Start Time Stop Time Status Last Admin Dose Admin Sodium Chloride (NS 1000 ml Inj) 1,000 ml @ 100 mls/hr Q10H IV 05/05/17 22:12 05/08/17 00:38 Sodium Chloride (NS Flush) 2 ml UNSCH PRN IV FLUSH FLUSH AFTER USING IV ACCESS 05/05/17 22:15 Sodium Chloride (NS Flush) 2 ml BID IV FLUSH 05/06/17 09:00 Ondansetron HCl (Zofran Inj) 4 mg Q6H PRN IVP NAUSEA OR VOMITING 05/05/17 22:15 Acetaminophen (Tylenol) 650 mg Q6H PRN PO FEVER/PAIN SCALE 1 TO 2 05/05/17 22:15 05/08/17 08:41 Oxycodone HCl (Roxicodone) 10 mg Q4H PRN PO PAIN SCALE 6 TO 10 05/05/17 22:15 05/08/17 10:20 Oxycodone HCl (Roxicodone) 5 mg Q4H PRN PO PAIN SCALE 3 TO 5 05/05/17 22:15 Senna/Docusate Sodium (Krysta-Colace) 1 tab BID PO 05/06/17 09:00 05/06/17 08:41 Magnesium Hydroxide (Milk Of Magnesia Liq) 30 ml Q12H PRN PO MILD - MODERATE CONSTIPATION 05/05/17 22:15 Sennosides (Senokot) 17.2 mg Q12H PRN PO MODERATE - SEVERE CONSTIPATION 05/05/17 22:15 Bisacodyl (Dulcolax Supp) 10 mg DAILY PRN RECTAL SEVERE CONSITIPATION 05/05/17 22:15 Lactulose (Lactulose Liq) 30 ml DAILY PRN PO SEVERE CONSITIPATION 05/05/17 22:15 Nicotine (Habitrol 21 Mg Patch.24 Hr) 1 patch DAILY T-DERMAL 05/06/17 12:00 05/08/17 08:40 Miscellaneous Information 1 1 DAILY T-DERMAL 05/06/17 12:00 05/08/17 08:40 Daptomycin 340 mg/ Sodium Chloride 100 ml @ 200 mls/hr Q24H IV 05/06/17 18:00 05/07/17 18:00 Piperacillin Sod/ Tazobactam Sod (Zosyn 4.5 Gm Premix) 100 ml @ 200 mls/hr Q6H IV 05/08/17 09:00 05/08/17 08:41 Imaging Vital Signs Date Time Temp Pulse Resp B/P Pulse Ox O2 Delivery O2 Flow Rate FiO2 05/08/17 10:26 92 05/08/17 04:00 99.5 84 16 112/67 99 Last 72 hours Impressions Chest X-Ray 05/08/17 0000 Signed Impressions: Service Date/Time: May 08:41 - CONCLUSION: Mild infiltrate right lung base. Felix Márquez MD Chest CT 05/06/17 0000 Signed Impressions: Service Date/Time: Saturday, May 06, 2017 21:16 - CONCLUSION: 1. Bibasilar areas of consolidation or atelectasis with bilateral effusions. These processes are more prominent on the right. 2. There is a right eighth rib fracture. Can Faria MD Abdomen/Pelvis CT 05/06/17 0000 Signed Impressions: Service Date/Time: Saturday, May 06, 2017 21:16 - CONCLUSION: 1. No acute abnormality seen. 2. Multiple small nonobstructing left renal stones. 3. Pars defect at L5 with spondylolisthesis. Can Faria MD Chest X-Ray 05/05/172020 Signed Impressions: Service Date/Time: Friday, May 05, 2017 20:42 - CONCLUSION: The lungs are clear. No evidence of pneumothorax. Neel Robert MD Echocardiogram indicates normal cardiac structure and physiology Objective Remarks GENERAL: This is a well-nourished, well-developed patient. Mildly diaphoretic. SKIN: No lesions noted aside from states leg wound. Wound is appears to be healing well relative to appearance previously HEAD: Atraumatic. Normocephalic. No temporal or scalp tenderness. NECK: Trachea midline. No JVD or lymphadenopathy. Supple, nontender, no meningeal signs. CARDIOVASCULAR: Regular rate and rhythm without murmurs, gallops, or rubs. RESPIRATORY: Clear to auscultation, but limited due to pain. Breath sounds equal bilaterally. No wheezes, rales, or rhonchi. GASTROINTESTINAL: Abdomen soft, non-tender, nondistended. No hepato-splenomegaly , or palpable masses. No guarding. MUSCULOSKELETAL: Extremities without clubbing, cyanosis, or edema. NEUROLOGICAL: Awake and alert. Normal speech. A/P Assessment and Plan 1) Fever Leg wound debridement consequence vs right lower lung atelectasis vs recurrent lung infection Acetaminophen used for temp, due to hep C do not exceed 2grams per 24hr Pending blood cultures 2) Rib Fracture Supportive measures Incentive spirometry Pain management via acetaminophen and sanjay 3) Negative blood cultures drawn 05/05/2017, confirmatory cultures drawn 2016 Fever raises concern for recurrence of blood infection Broad spectrum abx initiated (Vancomycin Zosin), will adjust pending culture sensitivity Echocardiogram showed no evidence of cardiac vegetation or abnormality 4) Leg laceration Wound culture positive for MRSA (05/05), continue vancomycin Wound healing appropriately Monitor for signs of reinfection 5) Hep C CMP and LFT to evaluate progression of disease Limit acetaminophen dosing to less than 2grams per 24hr 6) Ivdu (Opiate) Social work's help greatly appreciated in post discharge management and possible rehabilitation Cynthia Urrutia M3 May 08, 2017 12:10
[2017-05-08] MEDS ORDERED: Vancomycin Consult Pharmacy 1 EA OTHER SCH (16:45)
--- NOTE | 2017-05-08 16:45 | HHI.IDPN ---
Subjective Subjective Remarks This is a 32-year-old male with a PMH of Hepatitis C, Renal Stones and IVDU who was called back to the ER after positive blood cultures. Presented to ER on 04/03 after fall from ladder while at work w/ rib fracture and left lower extremity laceration, s/p laceration repair and d/c'd w/ Bactrim and Lortab and instructed to follow up in 10-14 days for staple removal however he did not. Returned to ER on 05/03/17 following another fall with complaints of rib pain, found to have right eighth rib fracture and previous rib fractures again noted. Reports redness/pain to LLE and removed most of the diana himself. Also notes subjective fever/chills. Blood Cultures 05/03/17 positive for Gram Postive Rods /, pt called and instructed to come to ER. On arrival, BP 118/66, HR 92 , O2 sat R RA, Afebrile. WBC 13.9. Chemistry essentially unremarkable except for K+ 3.2. GFR 85. CXR with no acute findings. Remaining diana removed in ER, wound red w/ some yellow discharge, s/p Wound Cultures, Vanc/Zosyn and repeat BC. Overnight events reviewed Fevers new overnight and also increase in WBC Complains of right side chest pain on inspiration No rash No diarrhea Antibiotics Dapto IV Lines Line sites with no e.o infection Past Medical History Hepatitis C, Renal Stones and IVDU ORIF Right Wrist, Jaw Surgery, Lithotripsy, Right Inguinal Hernia Repair, Tonsillectomy Allergies: Coded Allergies: Morphine (Verified Allergy, Mild, rash, 05/05/17) *MDRO Multi-Drug Resistant Organism (Verified Adverse Reaction, Unknown, ) MRSA (leg) 05/05/17 Uncoded Allergies: icy hot (Adverse Reaction, Mild, Rash., 06/12/16) Objective . Vital Signs Date Time Temp Pulse Resp B/P Pulse Ox O2 Delivery O2 Flow Rate FiO2 05/08/17 12:00 97.9 75 18 115/61 100 05/08/17 10:26 92 05/08/17 08:48 Room Air 05/08/17 08:00 100.6 88 18 127/74 98 05/08/17 04:00 99.5 84 16 112/67 99 05/08/17 00:00 101.2 92 18 129/76 99 05/07/17 20:00 99.2 87 18 107/63 96 05/07/17 20:00 Room Air 05/07/17 18:00 101.9 05/07/17 05/07/17 05/08/17 15:00 23:00 07:00 Intake Total 1321 ml 360 ml 2550 ml Output Total 1300 ml 1400 ml 1000 ml Balance 21 ml -1040 ml 1550 ml Intake Oral 480 ml 360 ml 240 ml IV Total 841 ml 2310 ml Output Urine Total 1300 ml 1400 ml 1000 ml # Voids 1 # Bowel Movements 1 1 0 . Laboratory Tests Test 05/07/17 05/08/17 04:20 06:40 White Blood Count 17.0 TH/MM3 16.4 TH/MM3 Red Blood Count 5.07 MIL/MM3 3.89 MIL/MM3 Hemoglobin 14.4 GM/DL 11.0 GM/DL Hematocrit 44.8 % 33.2 % Mean Corpuscular Volume 88.5 FL 85.3 FL Mean Corpuscular Hemoglobin 28.4 PG 28.3 PG Mean Corpuscular Hemoglobin 32.1 % 33.2 % Concent Red Cell Distribution Width 14.7 % 14.4 % Platelet Count 260 TH/MM3 274 TH/MM3 Mean Platelet Volume 7.9 FL 7.9 FL Laboratory Tests Test 05/07/17 04:20 Sodium Level 140 MEQ/L Potassium Level 4.1 MEQ/L Chloride Level 110 MEQ/L Carbon Dioxide Level 23.0 MEQ/L Anion Gap 7 MEQ/L Blood Urea Nitrogen 5 MG/DL Creatinine 0.83 MG/DL Estimat Glomerular Filtration 108 ML/MIN Rate Random Glucose 77 MG/DL Calcium Level 8.6 MG/DL Microbiology Date/Time Procedure Status Source Growth 05/05/17 20:53 Aerobic Blood Culture - Preliminary Resulted Blood Peripheral NO GROWTH IN 3 DAYS 05/05/17 20:53 Anaerobic Blood Culture - Preliminary Resulted Blood Peripheral NO GROWTH IN 3 DAYS 05/05/17 20:53 Aerobic Blood Culture - Preliminary Resulted Blood Peripheral NO GROWTH IN 3 DAYS 05/05/17 20:53 Anaerobic Blood Culture - Preliminary Resulted Blood Peripheral NO GROWTH IN 3 DAYS 05/05/17 21:24 Gram Stain - Final Complete Wound Leg 05/05/17 21:24 Wound Culture - Final Complete S. Aureus Mrsa 05/08/17 08:30 Aerobic Blood Culture Received Blood Peripheral Pending 05/08/17 08:30 Anaerobic Blood Culture Received Blood Peripheral Pending 05/08/17 08:40 Aerobic Blood Culture Received Blood Peripheral Pending 05/08/17 08:40 Anaerobic Blood Culture Received Blood Peripheral Pending Imaging Last Impressions Chest X-Ray 05/08/17 0000 Signed Impressions: Service Date/Time: May 08:41 - CONCLUSION: Mild infiltrate right lung base. Felix Márquez MD Chest CT 05/06/17 0000 Signed Impressions: Service Date/Time: Saturday, May 06, 2017 21:16 - CONCLUSION: 1. Bibasilar areas of consolidation or atelectasis with bilateral effusions. These processes are more prominent on the right. 2. There is a right eighth rib fracture. Can Faria MD Abdomen/Pelvis CT 05/06/17 0000 Signed Impressions: Service Date/Time: Saturday, May 06, 2017 21:16 - CONCLUSION: 1. No acute abnormality seen. 2. Multiple small nonobstructing left renal stones. 3. Pars defect at L5 with spondylolisthesis. Can Faria MD Physical Exam GENERAL: This is a well-nourished, well-developed patient, in no apparent distress. SKIN: No rashes, ecchymoses or lesions. Cool and dry. HEAD: Atraumatic. Normocephalic. No temporal or scalp tenderness. EYES: Pupils equal round and reactive. Extraocular motions intact. No scleral icterus. No injection or drainage. ENT: Nose without bleeding, purulent drainage or septal hematoma. Throat without erythema, tonsillar hypertrophy or exudate. Uvula midline. Airway patent. NECK: Trachea midline. Supple, nontender, no meningeal signs. CARDIOVASCULAR: Regular rate and rhythm without murmurs, gallops, or rubs. RESPIRATORY: Clear to auscultation. Breath sounds equal bilaterally. No wheezes , rales, or rhonchi. GASTROINTESTINAL: Abdomen soft, non-tender, nondistended. No hepato-splenomegaly , or palpable masses. No guarding. MUSCULOSKELETAL: On the right lower extremity there is a wound vac in place. NEUROLOGICAL: Awake and alert. Grossly nonfocal. Psych cooperative IV line sites with no e.o infection. Assessment & Plan Remarks Bacillus not antacids bacteremia in an IV drug abuser MRSA wound infection of the right lower extremity History of night sweats ? Chills prior to admission rule out endocarditis IV drug abuse Hepatitis C positive Recommendations: Restart Vanco IV (dapto will not work for lung due to surfactant effect) Continue Zosyn IV Follow cultures Follow clinically Case discussed with patient and RN Heather Sanchez MD May 08, 2017 16:44
[2017-05-08] MEDS ORDERED: VANCOMYCIN INJ 1,300 MG in SODIUM CHLORID 0.9% 500 ML INJ 500 ML IV ONE (18:00)
[2017-05-08] MEDS: oxyCODONE/ACETAMINOPHEN 5 MG/325 MG TAB PO PRN ×2 (18:55→23:03)
[2017-05-09] VITALS (7 sets, daily range): BP systolic 105–135; BP diastolic 61–80; PULSE 68–86; RESP 18–20; TEMP 98–99.4; O2SAT 97–100
[2017-05-09] MEDS: PIPERACIL-TAZO 4.5 GM PREMIX 100 ML IV SCH ×2 (02:58→08:08)
[2017-05-09] MEDS: oxyCODONE/ACETAMINOPHEN 5 MG/325 MG TAB PO PRN ×5 (02:58→20:03)
[2017-05-09] MEDS: VANCOMYCIN 1,000 MG/NS 250 ML IV SCH ×4 (04:09→11:06)
[2017-05-09] MEDS: SODIUM CHLOR 0.9% 1000 ML INJ 1,000 ML IV SCH (05:39)
[2017-05-09] MEDS: DOCUSATE SODIUM 50 MG/SENNA 8.6 MG TAB PO SCH ×2 (08:08→20:05)
[2017-05-09] MEDS: NICOTINE 21 MG/24 HR PATCH T-DERMAL SCH (08:08)
[2017-05-09] MEDS: REMOVE OLD PATCH T-DERMAL SCH (08:08)
[2017-05-09] MEDS: SODIUM CHLORIDE 0.9% FLUSH 10 ML FLUSH IV FLUSH SCH ×2 (08:08→20:04)
[2017-05-09 09:08] LABS: HEMATOCRIT 34.1 % (39.0-51.0); MEAN CELL VOLUME 86.6 FL (80.0-100.0); MEAN CORPUSCULAR HEMOGLOBIN 27.8 PG (27.0-34.0); MEAN CORPUSCULAR HGB CONC 32.1 % (32.0-36.0); PLATELET COUNT 340 TH/MM3 (150-450); RED BLOOD COUNT 3.93 MIL/MM3 (4.50-5.90); RED CELL DISTRIBUTION WIDTH 14.4 % (11.6-17.2); REVIEW FLAG FINAL; WHITE BLOOD COUNT 13.3 TH/MM3 (4.0-11.0)
[2017-05-09 09:24] LABS: BICARBONATE 27.1 MEQ/L (21.0-32.0); POTASSIUM 4.1 MEQ/L (3.5-5.1)
--- NOTE | 2017-05-09 10:15 | PD.PN.STU ---
Subjective Remarks Patient is a 32 year old male with hx of ivdu, blood infection, and left 8th rib fracture. Patient states he is feeling better today than yesterday, specifically that he does not feel as feverish and has begun to sweat. He complains of left rib pain at rest that has remained constant since initial presentation. Deep breathing elicits pain. Left leg wound is healing well without exudate. He states no pain at rest and mild pain upon movement or palpation. Patient's fever has decreased from 101.6 yesterday to 98.8 this morning. White count decreased from 16.4 yesterday to 13.3 today. Drop in h&h from 14.4/44.8 to 10.9/34.1 occured between 05/07 and 05/09 with unknown etiology. Will monitor with daily cbc. Blood cultures from yesterday pending, blood cultures from 05/05 showed no growth. Objective Vitals Vital Signs Date Time Temp Pulse Resp B/P Pulse Ox O2 Delivery O2 Flow Rate FiO2 05/09/17 09:17 Room Air 05/09/17 08:00 98.8 68 20 128/79 97 05/09/17 04:00 99.0 69 20 105/61 98 05/09/17 00:00 99.4 86 18 121/69 100 05/08/17 20:01 99.3 78 18 123/73 97 05/08/17 20:00 Room Air 05/08/17 16:00 98.3 85 18 121/54 97 05/08/17 12:00 97.9 75 18 115/61 100 05/08/17 10:26 92 I/O 05/08/17 05/08/17 05/08/17 05/09/17 05/09/17 05/09/17 07:00 15:00 23:00 07:00 15:00 23:00 Intake Total 2550 ml 960 ml 1761 ml 2407 ml Output Total 1000 ml 1600 ml 400 ml 550 ml Balance 1550 ml -640 ml 1361 ml 1857 ml Intake Oral 240 ml 960 ml 360 ml 1440 ml IV Total 2310 ml 1401 ml 967 ml Output Urine Total 1000 ml 1600 ml 400 ml 550 ml # Bowel Movements 0 0 1 1 Result Diagram: 05/09/17 0840 05/09/17 0840 Other Results Laboratory Tests Test 7/02/1705/07/17 05/08/17 05/09/17 23:15 04:20 06:40 08:40 Urine Color LIGHT-YELLOW (YELLW/STRAW) Urine Turbidity CLEAR (CLEAR) Urine pH 6.0 (5.0-8.5) Urine Specific [place] 1.006 (1.002-1.035) Urine Protein NEG mg/dL (NEG-TRACE) Urine Glucose (UA) NEG mg/dL (NEG) Urine Ketones NEG mg/dL (NEG) Urine Occult Blood NEG (NEG) Urine Nitrite NEG (NEG) Urine Bilirubin NEG (NEG) Urine Urobilinogen LESS THAN 2.0 MG/DL (LESS THAN 2.0) Urine Leukocyte Esterase NEG (NEG) Urine WBC 1 /hpf (0-5) Microscopic Urinalysis Comment CULT NOT INDICATED White Blood Count 17.0 TH/MM3 16.4 TH/MM3 13.3 TH/MM3 (4.0-11.0) (4.0-11.0) (4.0-11.0) Red Blood Count 5.07 MIL/MM3 3.89 MIL/MM3 3.93 MIL/MM3 (4.50-5.90) (4.50-5.90) (4.50-5.90) Hemoglobin 14.4 GM/DL 11.0 GM/DL 10.9 GM/DL (13.0-17.0) (13.0-17.0) (13.0-17.0) Hematocrit 44.8 % 33.2 % 34.1 % (39.0-51.0) (39.0-51.0) (39.0-51.0) Mean Corpuscular Volume 88.5 FL 85.3 FL 86.6 FL (80.0-100.0) (80.0-100.0) (80.0-100.0) Mean Corpuscular Hemoglobin 28.4 PG 28.3 PG 27.8 PG (27.0-34.0) (27.0-34.0) (27.0-34.0) Mean Corpuscular Hemoglobin 32.1 % 33.2 % 32.1 % Concent (32.0-36.0) (32.0-36.0) (32.0-36.0) Red Cell Distribution Width 14.7 % 14.4 % 14.4 % (11.6-17.2) (11.6-17.2) (11.6-17.2) Platelet Count 260 TH/MM3 274 TH/MM3 340 TH/MM3 (150-450) (150-450) (150-450) Mean Platelet Volume 7.9 FL 7.9 FL 7.5 FL (7.0-11.0) (7.0-11.0) (7.0-11.0) Sodium Level 140 MEQ/L 140 MEQ/L (136-145) (136-145) Potassium Level 4.1 MEQ/L 4.1 MEQ/L (3.5-5.1) (3.5-5.1) Chloride Level 110 MEQ/L 108 MEQ/L (98-107) (98-107) Carbon Dioxide Level 23.0 MEQ/L 27.1 MEQ/L (21.0-32.0) (21.0-32.0) Anion Gap 7 MEQ/L (5-15) 5 MEQ/L (5-15) Blood Urea Nitrogen 5 MG/DL (7-18) 7 MG/DL (7-18) Creatinine 0.83 MG/DL 0.91 MG/DL (0.60-1.30) (0.60-1.30) Estimat Glomerular Filtration 108 ML/MIN 97 ML/MIN (>89) Rate (>89) Random Glucose 77 MG/DL 87 MG/DL (74-106) (74-106) Calcium Level 8.6 MG/DL 8.4 MG/DL (8.5-10.1) (8.5-10.1) Microbiology Date/Time Procedure Status Source Growth 05/08/17 08:40 Aerobic Blood Culture Received Blood Peripheral Pending 05/08/17 08:40 Anaerobic Blood Culture Received Blood Peripheral Pending 05/05/17 21:24 Gram Stain - Final Complete Wound Leg 05/05/17 21:24 Wound Culture - Final Complete S. Aureus Mrsa 05/05/17 20:53 Aerobic Blood Culture - Preliminary Resulted Blood Peripheral NO GROWTH IN 3 DAYS 05/05/17 20:53 Anaerobic Blood Culture - Preliminary Resulted Blood Peripheral NO GROWTH IN 3 DAYS Imaging Last 72 hours Impressions Chest X-Ray 05/08/17 0000 Signed Impressions: Service Date/Time: May 08:41 - CONCLUSION: Mild infiltrate right lung base. Felix Márquez MD Objective Remarks GENERAL: This is a well-nourished, well-developed patient,mildly diaphoretic SKIN: No rashes, ecchymoses or lesions. Cool and dry. Leg wound healing well without exudate HEAD: Atraumatic. Normocephalic. No temporal or scalp tenderness. EYES: Pupils equal round and reactive. ENT: Nose without bleeding, purulent drainage or septal hematoma. Throat without erythema, tonsillar hypertrophy or exudate. Uvula midline. Airway patent. NECK: Trachea midline. No JVD or lymphadenopathy. Supple, nontender, no meningeal signs. CARDIOVASCULAR: Regular rate and rhythm without murmurs, gallops, or rubs. RESPIRATORY: Clear to auscultation. Breath sounds equal bilaterally. No wheezes , rales, or rhonchi. GASTROINTESTINAL: Abdomen soft, non-tender, nondistended. No guarding. MUSCULOSKELETAL: Extremities without clubbing, cyanosis, or edema. NEUROLOGICAL: Awake and alert. Motor and sensory grossly within normal limits. Normal speech. Medications and IVs Current Medications Medications (Trade) Dose Ordered Sig/Nayeli Route PRN Reason Start Time Stop Time Status Last Admin Dose Admin Sodium Chloride (NS 1000 ml Inj) 1,000 ml @ 100 mls/hr Q10H IV 05/05/17 22:12 05/08/17 23:00 Sodium Chloride (NS Flush) 2 ml UNSCH PRN IV FLUSH FLUSH AFTER USING IV ACCESS 05/05/17 22:15 Sodium Chloride (NS Flush) 2 ml BID IV FLUSH 05/06/17 09:00 Ondansetron HCl (Zofran Inj) 4 mg Q6H PRN IVP NAUSEA OR VOMITING 05/05/17 22:15 Senna/Docusate Sodium (Krysta-Colace) 1 tab BID PO 05/06/17 09:00 05/09/17 08:08 Magnesium Hydroxide (Milk Of Magnesia Liq) 30 ml Q12H PRN PO MILD - MODERATE CONSTIPATION 05/05/17 22:15 Sennosides (Senokot) 17.2 mg Q12H PRN PO MODERATE - SEVERE CONSTIPATION 05/05/17 22:15 Bisacodyl (Dulcolax Supp) 10 mg DAILY PRN RECTAL SEVERE CONSITIPATION 05/05/17 22:15 Lactulose (Lactulose Liq) 30 ml DAILY PRN PO SEVERE CONSITIPATION 05/05/17 22:15 Nicotine (Habitrol 21 Mg Patch.24 Hr) 1 patch DAILY T-DERMAL 05/06/17 12:00 05/09/17 08:08 Miscellaneous Information 1 1 DAILY T-DERMAL 05/06/17 12:00 05/09/17 08:08 Piperacillin Sod/ Tazobactam Sod (Zosyn 4.5 Gm Premix) 100 ml @ 200 mls/hr Q6H IV 05/08/17 09:00 05/09/17 08:08 Oxycodone/ Acetaminophen 1 tab 1 tab Q4H PRN PO PAIN GREATER THAN 5 05/08/17 15:45 05/09/17 06:59 Pharmacy Profile Note 0 ml @ 0 mls/hr UNSCH OTHER 05/08/17 16:45 Vancomycin HCl/ Sodium Chloride (Vancomycin Inj/ NS 250 ml Inj) 250 ml @ 250 mls/hr Q8H IV 05/09/17 04:00 05/09/17 04:09 Miscellaneous Information SPECIFIC LAB TO BE DRAWN:[facility] DATE TO BE DRJoanne. ONCE ONCE .XX 05/09/17 19:45 05/09/17 19:46 A/P Assessment and Plan 1) Fever Resolving along with decreasing white count, monitor with cbc and evaluation tomorrow Acetaminophen used for temp, due to hep C do not exceed 2grams per 24hr Pending blood cultures 2) Rib Fracture Supportive measures Incentive spirometry Pain management via acetaminophen and sanjay 3) Negative blood cultures drawn 05/05/2017, confirmatory cultures drawn 2016 Fever raises concern for recurrence of blood infection, 05/08 cultures still pending Broad spectrum abx initiated, will adjust pending culture sensitivity Echocardiogram showed no evidence of cardiac vegetation or abnormality 4) Leg laceration Wound culture positive for MRSA (05/05), continue vancomycin Wound healing appropriately Monitor for signs of reinfection 5) Hep C Limit acetaminophen dosing to less than 2grams per 24hr 6) Ivdu (Opiate) Social work's help greatly appreciated in post discharge management and possible rehabilitation Cynthia Urrutia M3 May 09, 2017 10:15
--- NOTE | 2017-05-09 10:55 | HHI.PR ---
Subjective Remarks Patient reports same right rib pain and left leg pain. No fevers or chills. Objective Vitals Vital Signs Date Time Temp Pulse Resp B/P Pulse Ox O2 Delivery O2 Flow Rate FiO2 05/09/17 09:17 Room Air 05/09/17 08:00 98.8 68 20 128/79 97 05/09/17 04:00 99.0 69 20 105/61 98 05/09/17 00:00 99.4 86 18 121/69 100 05/08/17 20:01 99.3 78 18 123/73 97 05/08/17 20:00 Room Air 05/08/17 16:00 98.3 85 18 121/54 97 05/08/17 12:00 97.9 75 18 115/61 100 I/O 05/08/17 05/08/17 05/08/17 05/09/17 05/09/17 05/09/17 07:00 15:00 23:00 07:00 15:00 23:00 Intake Total 2550 ml 960 ml 1761 ml 2407 ml Output Total 1000 ml 1600 ml 400 ml 550 ml Balance 1550 ml -640 ml 1361 ml 1857 ml Intake Oral 240 ml 960 ml 360 ml 1440 ml IV Total 2310 ml 1401 ml 967 ml Output Urine Total 1000 ml 1600 ml 400 ml 550 ml # Bowel Movements 0 0 1 1 Result Diagram: 05/09/17 0840 05/09/17 0840 Objective Remarks GENERAL: This is a well-nourished, well-developed patient, in no apparent distress. SKIN: Left juarez wound appear to be healing well. It is packed. No surrounding erythema. CARDIOVASCULAR: Normal rate and regular rhythm without murmurs, gallops, or rubs. RESPIRATORY: Good respiratory efforts. Breath sounds equal and clear to auscultation bilaterally. GASTROINTESTINAL: Abdomen soft, non-tender, non-distended. Normal active bowel sounds MUSCULOSKELETAL: Extremities without cyanosis, or edema. NEURO: Alert & Oriented x4 to person, place, time, situation. Moves all ext x4 PSYCH: Appropriate mood and affect. A/P Problem List: (1) Bacteremia ICD Code: R78.81 Status: Acute (2) Wound infection ICD Code: T14.8 Status: Acute (3) Failure of outpatient treatment ICD Code: Z78.9 Status: Acute (4) IVDU (intravenous drug user) ICD Code: F19.90 Status: Acute (5) Rib fracture ICD Code: S22.39XA Status: Acute (6) Tobacco abuse ICD Code: Z72.0 Status: Acute Assessment and Plan 32-year-old male IV drug user admitted to the hospital after he was called back for positive blood cultures. Bacteremia: Blood cultures from 05/03/17 growing bacillus, called by lab and instructed to come to ER for positive blood cultures. Infectious disease following. Patient currently on daptomycin. 2-D echocardiogram unremarkable. Agree with ID, positive blood culture likely contaminant. He did spike a fever and repeat blood cultures were ordered on 05/08. DW ID. Will continue to follow. - Further plans per ID. Wound Infection: Resolving. Wound culture growing MRSA. S/p laceration to LLE following fall from ladder 04/03/17, s/p diana and Bactrim which he completed, with redness and drainage on admission, failed outpatient tx, majority of diana removed by patient, 2 left over diana removed by ER physician on presentation. Continue w/ IV Abx as above. Possible PNA: Likely from persistent atelectasis, rib fracture on the same side. Antibiotics as above. Zosyn was added to daptomycin. Patient encouraged to use IS. He is encouraged to get out of bed. Rib fracture: Acute Right 8th Rib Fx on recent presentation 05/03/17, previous left-sided rib cultures s/p fall 04/03/17. Continue supportive care with pain control, incentive spirometry - Change pain medication to Percocet. IVDU: w/ Dilaudid. Avoid IV narcotics. Patient extensively counseled Tobacco Abuse: Pt counselled. Ativan/NicoDerm prn if needed. DVT Prophylaxis: Patient is ambulatory. Discharge Planning Follow cultures. Further plans per ID. Home with oral abx vs infusion center IV Abx. He has no insurance. Darian Ross MD May 09, 2017 10:55
[2017-05-09 11:53] LABS: AUTOMATED NEUTROPHIL # 8.8 TH/MM3 (1.8-7.7); BASOPHIL # 0.1 TH/MM3 (0-0.2); BASOPHIL % 0.8 % (0.0-2.0); EOSINOPHIL # 0.2 TH/MM3 (0-0.4); EOSINOPHIL % 1.4 % (0.0-4.0); HEMATOCRIT 33.4 % (39.0-51.0); HEMO FLAGS DIFF FINAL; LYMPH % 18.9 % (9.0-44.0); LYMPHOCYTE # 2.3 TH/MM3 (1.0-4.8); MEAN CELL VOLUME 85.4 FL (80.0-100.0); MEAN CORPUSCULAR HEMOGLOBIN 28.7 PG (27.0-34.0); MEAN CORPUSCULAR HGB CONC 33.6 % (32.0-36.0); MONO % 7.2 % (0.0-8.0); NEUT % 71.7 % (16.0-70.0); PLATELET COUNT 362 TH/MM3 (150-450); RED BLOOD COUNT 3.91 MIL/MM3 (4.50-5.90); RED CELL DISTRIBUTION WIDTH 14.3 % (11.6-17.2); WHITE BLOOD COUNT 12.3 TH/MM3 (4.0-11.0)
[2017-05-09 13:22] LABS: ALT (GPT) 24 U/L (12-78); AST (GOT) 16 U/L (15-37); LDH SERUM 129 U/L (87-241)
[2017-05-09 13:30] LABS: ALKALINE PHOSPHATASE 70 U/L (45-117); FERRITIN 259 NG/ML (26-388); INDIRECT BILIRUBIN 0.3 MG/DL (0.0-0.8); TOTAL BILIRUBIN ADULT 0.4 MG/DL (0.2-1.0); TRANSFERRIN IRON PROFILE 140 MG/DL (200-360); VANCOMYCIN TROUGH 37.9 MCG/ML (5.0-10.0)
--- NOTE | 2017-05-09 15:28 | HHI.IDPN ---
Subjective Subjective Remarks This is a 32-year-old male with a PMH of Hepatitis C, Renal Stones and IVDU who was called back to the ER after positive blood cultures. Presented to ER on 04/03 after fall from ladder while at work w/ rib fracture and left lower extremity laceration, s/p laceration repair and d/c'd w/ Bactrim and Lortab and instructed to follow up in 10-14 days for staple removal however he did not. Returned to ER on 05/03/17 following another fall with complaints of rib pain, found to have right eighth rib fracture and previous rib fractures again noted. Reports redness/pain to LLE and removed most of the diana himself. Also notes subjective fever/chills. Blood Cultures 05/03/17 positive for Gram Postive Rods /, pt called and instructed to come to ER. On arrival, BP 118/66, HR 92 , O2 sat R RA, Afebrile. WBC 13.9. Chemistry essentially unremarkable except for K+ 3.2. GFR 85. CXR with no acute findings. Remaining diana removed in ER, wound red w/ some yellow discharge, s/p Wound Cultures, Vanc/Zosyn and repeat BC. Overnight events reviewed No fevers WBC trending downwards No rash No diarrhea Antibiotics Zosyn IV Vanco IV Lines Line sites with no e.o infection Past Medical History Hepatitis C, Renal Stones and IVDU ORIF Right Wrist, Jaw Surgery, Lithotripsy, Right Inguinal Hernia Repair, Tonsillectomy Allergies: Coded Allergies: Morphine (Verified Allergy, Mild, rash, 05/05/17) *MDRO Multi-Drug Resistant Organism (Verified Adverse Reaction, Unknown, ) MRSA (leg) 05/05/17 Uncoded Allergies: icy hot (Adverse Reaction, Mild, Rash., 06/12/16) Objective . Vital Signs Date Time Temp Pulse Resp B/P Pulse Ox O2 Delivery O2 Flow Rate FiO2 05/09/17 12:00 98.0 68 20 135/80 98 05/09/17 09:17 Room Air 05/09/17 08:00 98.8 68 20 128/79 97 05/09/17 07:53 80 05/09/17 04:00 99.0 69 20 105/61 98 05/09/17 00:00 99.4 86 18 121/69 100 05/08/17 20:01 99.3 78 18 123/73 97 05/08/17 20:00 Room Air 05/08/17 16:00 98.3 85 18 121/54 97 05/08/17 05/08/17 05/09/17 15:00 23:00 07:00 Intake Total 960 ml 1761 ml 2407 ml Output Total 1600 ml 400 ml 550 ml Balance -640 ml 1361 ml 1857 ml Intake Oral 960 ml 360 ml 1440 ml IV Total 1401 ml 967 ml Output Urine Total 1600 ml 400 ml 550 ml # Bowel Movements 0 1 1 . Laboratory Tests Test 05/08/17 05/09/17 05/09/17 06:40 08:40 11:25 White Blood Count 16.4 TH/MM3 13.3 TH/MM3 12.3 TH/MM3 Red Blood Count 3.89 MIL/MM3 3.93 MIL/MM3 3.91 MIL/MM3 Hemoglobin 11.0 GM/DL 10.9 GM/DL 11.2 GM/DL Hematocrit 33.2 % 34.1 % 33.4 % Mean Corpuscular Volume 85.3 FL 86.6 FL 85.4 FL Mean Corpuscular Hemoglobin 28.3 PG 27.8 PG 28.7 PG Mean Corpuscular Hemoglobin 33.2 % 32.1 % 33.6 % Concent Red Cell Distribution Width 14.4 % 14.4 % 14.3 % Platelet Count 274 TH/MM3 340 TH/MM3 362 TH/MM3 Mean Platelet Volume 7.9 FL 7.5 FL 7.5 FL Neutrophils (%) (Auto) 71.7 % Lymphocytes (%) (Auto) 18.9 % Monocytes (%) (Auto) 7.2 % Eosinophils (%) (Auto) 1.4 % Basophils (%) (Auto) 0.8 % Neutrophils # (Auto) 8.8 TH/MM3 Lymphocytes # (Auto) 2.3 TH/MM3 Monocytes # (Auto) 0.9 TH/MM3 Eosinophils # (Auto) 0.2 TH/MM3 Basophils # (Auto) 0.1 TH/MM3 CBC Comment DIFF FINAL Differential Comment Laboratory Tests Test 05/09/17 05/09/17 08:40 11:55 Sodium Level 140 MEQ/L Potassium Level 4.1 MEQ/L Chloride Level 108 MEQ/L Carbon Dioxide Level 27.1 MEQ/L Anion Gap 5 MEQ/L Blood Urea Nitrogen 7 MG/DL Creatinine 0.91 MG/DL Estimat Glomerular Filtration 97 ML/MIN Rate Random Glucose 87 MG/DL Calcium Level 8.4 MG/DL Iron Level 26 MCG/DL Total Iron Binding Capacity 196 MCG/DL Percent Iron Saturation 13.3 % Ferritin 259 NG/ML Total Bilirubin 0.4 MG/DL Direct Bilirubin 0.1 MG/DL Indirect Bilirubin 0.3 MG/DL Aspartate Amino Transf 16 U/L (AST/SGOT) Alanine Aminotransferase 24 U/L (ALT/SGPT) Alkaline Phosphatase 70 U/L Lactate Dehydrogenase 129 U/L Total Protein 6.5 GM/DL Albumin 2.0 GM/DL Microbiology Date/Time Procedure Status Source Growth 05/08/17 08:30 Aerobic Blood Culture - Preliminary Resulted Blood Peripheral NO GROWTH IN 1 DAY 05/08/17 08:30 Anaerobic Blood Culture - Preliminary Resulted Blood Peripheral NO GROWTH IN 1 DAY 05/08/17 08:40 Aerobic Blood Culture - Preliminary Resulted Blood Peripheral NO GROWTH IN 1 DAY 05/08/17 08:40 Anaerobic Blood Culture - Preliminary Resulted Blood Peripheral NO GROWTH IN 1 DAY Imaging Last Impressions Chest X-Ray 05/08/17 0000 Signed Impressions: Service Date/Time: May 08:41 - CONCLUSION: Mild infiltrate right lung base. Felix Márquez MD Chest CT 05/06/17 0000 Signed Impressions: Service Date/Time: Saturday, May 06, 2017 21:16 - CONCLUSION: 1. Bibasilar areas of consolidation or atelectasis with bilateral effusions. These processes are more prominent on the right. 2. There is a right eighth rib fracture. Can Faria MD Abdomen/Pelvis CT 05/06/17 0000 Signed Impressions: Service Date/Time: Saturday, May 06, 2017 21:16 - CONCLUSION: 1. No acute abnormality seen. 2. Multiple small nonobstructing left renal stones. 3. Pars defect at L5 with spondylolisthesis. Can Faria MD Physical Exam GENERAL: This is a well-nourished, well-developed patient, in no apparent distress. SKIN: No rashes, ecchymoses or lesions. Cool and dry. HEAD: Atraumatic. Normocephalic. No temporal or scalp tenderness. EYES: Pupils equal round and reactive. Extraocular motions intact. No scleral icterus. No injection or drainage. ENT: Nose without bleeding, purulent drainage or septal hematoma. Throat without erythema, tonsillar hypertrophy or exudate. Uvula midline. Airway patent. NECK: Trachea midline. Supple, nontender, no meningeal signs. CARDIOVASCULAR: Regular rate and rhythm without murmurs, gallops, or rubs. RESPIRATORY: Clear to auscultation. Breath sounds equal bilaterally. No wheezes , rales, or rhonchi. GASTROINTESTINAL: Abdomen soft, non-tender, nondistended. No hepato-splenomegaly , or palpable masses. No guarding. MUSCULOSKELETAL: On the right lower extremity there is a Wound vac. NEUROLOGICAL: Awake and alert. Grossly nonfocal. Psych cooperative IV line sites with no e.o infection. Assessment & Plan Remarks Bacillus not antacids bacteremia in an IV drug abuser MRSA wound infection of the right lower extremity History of night sweats ? Chills prior to admission rule out endocarditis IV drug abuse Hepatitis C positive Recommendations: Discontinue Vanco IV (dapto will not work for lung due to surfactant effect) DC Zosyn IV Start Levaquin Start Bactrim If continues to do well DC home on oral regimen as above for 2 weeks. If fevers recurr restart Vanco IV and Zosyn IV and call . Will need IV for 6 weeks if fevers recurr or change in clinical condition. Follow cultures Follow clinically Case discussed with patient and RN Heather Sanchez MD May 09, 2017 15:28
[2017-05-09] MEDS: LEVOFLOXACIN 750 MG TAB PO SCH (17:05)
[2017-05-09] MEDS ORDERED: PHARMACY ORDERED LAB ONE (19:45)
[2017-05-09] MEDS: SULFAMETHOXAZOLE-TRIMETHOPRIM DS 800-160 MG TAB PO SCH (20:02)
[2017-05-10] VITALS: BP 129/72; PULSE 75; RESP 18; TEMP 98; O2SAT 100
[2017-05-10] MEDS: oxyCODONE/ACETAMINOPHEN 5 MG/325 MG TAB PO PRN ×4 (00:03→12:46)
[2017-05-10 04:00] VITALS: BP 129/71; PULSE 77; RESP 16; TEMP 98.6; O2SAT 99
[2017-05-10] MEDS: NICOTINE 21 MG/24 HR PATCH T-DERMAL SCH (07:23)
[2017-05-10] MEDS: SULFAMETHOXAZOLE-TRIMETHOPRIM DS 800-160 MG TAB PO SCH (07:23)
[2017-05-10] MEDS: LEVOFLOXACIN 750 MG TAB PO SCH (07:23)
[2017-05-10] MEDS: REMOVE OLD PATCH T-DERMAL SCH (07:23)
[2017-05-10] MEDS: SODIUM CHLORIDE 0.9% FLUSH 10 ML FLUSH IV FLUSH SCH (07:24)
[2017-05-10] MEDS: DOCUSATE SODIUM 50 MG/SENNA 8.6 MG TAB PO SCH (07:28)
[2017-05-10 07:48] LABS: HEMATOCRIT 35.9 % (39.0-51.0); MEAN CELL VOLUME 86.8 FL (80.0-100.0); MEAN CORPUSCULAR HEMOGLOBIN 28.4 PG (27.0-34.0); MEAN CORPUSCULAR HGB CONC 32.8 % (32.0-36.0); PLATELET COUNT 422 TH/MM3 (150-450); RED BLOOD COUNT 4.14 MIL/MM3 (4.50-5.90); RED CELL DISTRIBUTION WIDTH 14.1 % (11.6-17.2); REVIEW FLAG FINAL; WHITE BLOOD COUNT 11.2 TH/MM3 (4.0-11.0)
[2017-05-10 08:01] VITALS: PULSE 58
[2017-05-10 08:07] VITALS: BP 121/58; PULSE 61; RESP 16; TEMP 98.3; O2SAT 99
[2017-05-10 08:10] LABS: BICARBONATE 30.5 MEQ/L (21.0-32.0)
[2017-05-10] MEDS ORDERED: LEVA750T9 PO (12:18)
[2017-05-10] MEDS ORDERED: HYDR-3533 PO (12:18)
[2017-05-10] MEDS ORDERED: BACT800T5 PO (12:18)
[2017-05-10] MEDS ORDERED: IBUP800T23 PO (12:18)
--- NOTE | 2017-05-10 12:20 | HHI.DCPOC ---
Discharge Care Plan Diagnosis: (1) Skin infection, bacterial (2) IV drug user (3) Positive blood culture (4) Bacteremia Goals to Promote Your Health * To prevent worsening of your condition and complications * To maintain your health at the optimal level Directions to Meet Your Goals Take your medications as prescribed Follow your dietary instruction Follow activity as directed Keep your appointments as scheduled Take your immunizations and boosters as scheduled If your symptoms worsen call your PCP, if no PCP go to Urgent Care Center or Emergency Room Smoking is Dangerous to Your Health. Avoid second hand smoke Call the 24-hour hour crisis hotline for domestic abuse at Darian Ross MD May 10, 2017 12:20
--- NOTE | 2017-05-10 12:23 | HHI.DS ---
Discharge Summary Admission Date May 05, 2017 at 22:31 Discharge Date: May 10, 2017 Admitting Diagnosis (1) Bacteremia ICD Code: R78.81 (2) Wound infection ICD Code: T14.8 (3) Failure of outpatient treatment ICD Code: Z78.9 (4) IVDU (intravenous drug user) ICD Code: F19.90 (5) Rib fracture ICD Code: S22.39XA (6) Tobacco abuse ICD Code: Z72.0 Procedures None Brief History - From Admission This is a 32-year-old male with a PMH of Hepatitis C, Renal Stones and IVDU who was called back to the ER after positive blood cultures. Presented to ER on 04/03 after fall from ladder while at work w/ rib fracture and left lower extremity laceration, s/p laceration repair and d/c'd w/ Bactrim and Lortab and instructed to follow up in 10-14 days for staple removal however he did not. Returned to ER on 05/03/17 following another fall with complaints of rib pain, found to have right eighth rib fracture and previous rib fractures again noted. Reports redness/pain to LLE and removed most of the diana himself. Also notes subjective fever/chills. Blood Cultures 05/03/17 positive for Gram Postive Rods 1/2, pt called and instructed to come to ER. On arrival, BP 118/66, HR 92 , O2 sat R RA, Afebrile. WBC 13.9. Chemistry essentially unremarkable except for K+ 3.2. GFR 85. CXR with no acute findings. Remaining diana removed in ER, wound red w/ some yellow discharge, s/p Wound Cultures, Vanc/Zosyn and repeat BC. CBC/BMP: 05/10/17 0539 05/10/17 0539 Significant Findings Laboratory Tests Test 05/08/17 05/09/17 05/09/17 05/09/17 06:40 08:40 11:25 11:55 White Blood Count 16.4 TH/MM3 13.3 TH/MM3 12.3 TH/MM3 (4.0-11.0) (4.0-11.0) (4.0-11.0) Red Blood Count 3.89 MIL/MM3 3.93 MIL/MM3 3.91 MIL/MM3 (4.50-5.90) (4.50-5.90) (4.50-5.90) Hemoglobin 11.0 GM/DL 10.9 GM/DL 11.2 GM/DL (13.0-17.0) (13.0-17.0) (13.0-17.0) Hematocrit 33.2 % 34.1 % 33.4 % (39.0-51.0) (39.0-51.0) (39.0-51.0) Chloride Level 108 MEQ/L (98-107) Calcium Level 8.4 MG/DL (8.5-10.1) Neutrophils (%) (Auto) 71.7 % (16.0-70.0) Neutrophils # (Auto) 8.8 TH/MM3 (1.8-7.7) Iron Level 26 MCG/DL (65-175) Total Iron Binding Capacity 196 MCG/DL (250-450) Percent Iron Saturation 13.3 % (20-50) Albumin 2.0 GM/DL (3.4-5.0) Vancomycin Level Trough 37.9 MCG/ML (5.0-10.0) Test 05/10/17 05:39 White Blood Count 11.2 TH/MM3 (4.0-11.0) Red Blood Count 4.14 MIL/MM3 (4.50-5.90) Hemoglobin 11.8 GM/DL (13.0-17.0) Hematocrit 35.9 % (39.0-51.0) Imaging Last Impressions Chest X-Ray 05/08/17 0000 Signed Impressions: Service Date/Time: May 08:41 - CONCLUSION: Mild infiltrate right lung base. Felix Márquez MD Chest CT 05/06/17 0000 Signed Impressions: Service Date/Time: Saturday, May 06, 2017 21:16 - CONCLUSION: 1. Bibasilar areas of consolidation or atelectasis with bilateral effusions. These processes are more prominent on the right. 2. There is a right eighth rib fracture. Can Faria MD Abdomen/Pelvis CT 05/06/17 0000 Signed Impressions: Service Date/Time: Saturday, May 06, 2017 21:16 - CONCLUSION: 1. No acute abnormality seen. 2. Multiple small nonobstructing left renal stones. 3. Pars defect at L5 with spondylolisthesis. Can Faria MD PE at Discharge GENERAL: This is a well-nourished, well-developed patient, in no apparent distress. SKIN: Left juarez wound appear to be healing well. It is packed. No surrounding erythema. CARDIOVASCULAR: Normal rate and regular rhythm without murmurs, gallops, or rubs. RESPIRATORY: Good respiratory efforts. Breath sounds equal and clear to auscultation bilaterally. GASTROINTESTINAL: Abdomen soft, non-tender, non-distended. Normal active bowel sounds MUSCULOSKELETAL: Extremities without cyanosis, or edema. NEURO: Alert & Oriented x4 to person, place, time, situation. Moves all ext x4 PSYCH: Appropriate mood and affect. Pt update on day of discharge Patient reports he is feeling ok. Reports same left leg pain and right rib pain. No fevers or chills. Hospital Course 32-year-old male IV drug user admitted to the hospital after he was called back for positive blood cultures. Evaluation and treatment course detailed below: Bacteremia: Blood cultures from 05/03/17 growing bacillus, called by lab and instructed to come to ER for positive blood cultures. Infectious disease following. Patient currently on daptomycin. 2-D echocardiogram unremarkable. Agree with ID, positive blood culture likely contaminant. Patient discharged on Levaquin and Bactrim to cover for pneumonia and leg MRSA. Wound Infection: Resolving. Wound culture growing MRSA. S/p laceration to LLE following fall from ladder 04/03/17, s/p diana and Bactrim which he completed, with redness and drainage on admission, failed outpatient tx, majority of diana removed by patient, 2 left over diana removed by ER physician on presentation. Patient discharged on Levaquin and Bactrim to cover for pneumonia and leg MRSA. Possible PNA: Likely from persistent atelectasis, rib fracture on the same side. Antibiotics as above. Zosyn was added to daptomycin. Patient encouraged to use IS. He is encouraged to get out of bed. Patient discharged on Levaquin to cover for pneumonia. Rib fracture: Acute Right 8th Rib Fx on recent presentation 05/03/17, previous left-sided rib cultures s/p fall 04/03/17. Continue supportive care with pain control, incentive spirometry - pain medication as needed IVDU: w/ Dilaudid. Avoid IV narcotics. Patient extensively counseled Tobacco Abuse: Pt counselled. Ativan/NicoDerm prn if needed. Pt Condition on Discharge: Good Discharge Disposition: Discharge Home Discharge Time: <= 30 minutes Discharge Instructions DIET: Follow Instructions for: As Tolerated, No Restrictions Activities you can perform: Regular-No Restrictions Other Activity Instructions: DO not use illegal drugs. NO IV drugs. New Medications: Levofloxacin (Levaquin) 750 Mg Tablet 750 MG PO DAILY #14 TAB Changed Medications: Hydrocodone-Acetaminophen (Lortab) 5-325 Mg Tab 1 TAB PO Q6H PRN severe pain #10 Ref 0 TAB (Changed from: 15) Continued Medications: Ibuprofen (Ibuprofen) 800 Mg Tab 800 MG PO Q8H PRN PAIN SCALE 1 TO 10 #20 Ref 0 TAB (This prescription has been renewed) Sulfamethoxazole-Trimethoprim (Bactrim DS) 800-160 Mg Tab 1 TAB PO BID Infection #28 Ref 0 TAB (This prescription has been renewed) Discontinued Medications: Acetaminophen (Tylenol) 325 Mg Tab 650 MG PO Q6HR PRN PAIN SCALE 1 TO 4 #20 TAB Hydrocodone-Acetaminophen (Lortab) 5-325 Mg Tab 1 TAB PO Q8HR PRN PAIN GREATER THAN 7 #9 Ref 0 TAB Tamsulosin Hcl (Flomax) 0.4 Mg Cap 0.4 MG PO DAILY Days 10 Darian Iyer MD May 10, 2017 12:23
[2017-05-10 12:30] VITALS: BP 116/67; PULSE 67; RESP 17; TEMP 98.5; O2SAT 96
== END 2017-05-10 15:19 | disposition home or self-care (01) | DRG 920 ==
LOC: NEPC 19:41 → NEDA 22:31 → N04B 23:53 → N04A 05-09 00:20
PROVIDERS: ADMIT Family Medicine; ATTEND Family Medicine
DX: T81.30XA Disruption of wound, unspecified, initial encounter (principal); R78.81 Bacteremia; S22.31XA Fracture of one rib, right side, initial encounter for closed fracture; S81.812A Laceration without foreign body, left lower leg, initial encounter; B95.62 Methicillin resistant Staphylococcus aureus infection as the cause of diseases classified elsewhere; W11.XXXA Fall on and from ladder, initial encounter; Y92.9 Unspecified place or not applicable; B19.20 Unspecified viral hepatitis C without hepatic coma; F19.10 Other psychoactive substance abuse, uncomplicated; F17.200 Nicotine dependence, unspecified, uncomplicated; Z87.442 Personal history of urinary calculi
CPT/HCPCS: 71010; 71260; 74177; 80048; 80053; 80076; 80202; 81001; 82550; 82728; 83540; 83550; 83605; 83615; 83880; 84484; 85025; 85027; 85610; 85652; 85730; 86140; 86403; 87040; 87070; 87147; 87186; 87205; 93005; 93306; 94150; 96365; 96375; J0692; J0878; J1885; J2543; J3370; J7030; J7040; J7050; Q9963; Q9967

== ENCOUNTER 2017-12-08 14:16 | Emergency (ER) | payer SELFPAY ==
[~2017-12-08 14:16] MED LIST changes: -ACET325S8 PO; +IBUP1TAB7 PO; -IBUP800T23 PO; +LEVA750T9 PO; -TAMS0.4C67 PO
[2017-12-08 14:28] VITALS: BP 133/74; PULSE 87; RESP 14; TEMP 98.7; O2SAT 99
--- NOTE | 2017-12-08 16:55 | PD ---
HPI Chief Complaint: Oral / Dental Pain or Problem Time Seen by Provider: 16:43 Travel History International Travel<30 days: No Contact w/Intl Traveler<30days: No Traveled to known affect area: No History of Present Illness HPI 32-year-old male presents to the ED for evaluation of 9 out of 10 left-sided dental pain. Pain is throbbing, radiates under the left eye. Onset this morning upon waking. Patient states that he has a cracked tooth in the area but has not had any problems until today. He endorses subjective fevers, has not measured a temperature at home. He denies nausea, vomiting, difficulty swallowing his own secretions. Treatment attempted at home. PFSH Past Medical History Arthritis: No Asthma: No Autoimmune Disease: No Blood Disorders: No Heart Rhythm Problems: No Cancer: No Cardiovascular Problems: No High Cholesterol: No Chest Pain: No Congestive Heart Failure: No COPD: No Cerebrovascular Accident: No Diabetes: No Diminished Hearing: No Endocrine: No Gastrointestinal Disorders: Yes (stomach pain with diarrhea) GERD: No Glaucoma: No Genitourinary: Yes (KIDNEY STONES) Headaches: No Hepatitis: Yes (hep c) Hiatal Hernia: No Hypertension: No Immune Disorder: No Inguinal Hernia: Yes (RIGHT GROIN REPAIRED) Kidney Stones: Yes Musculoskeletal: Yes (fx both wrists age 14 & 15 & 28, broken jaw, broken ribs ) Neurologic: Yes Psychiatric: No Reproductive: No Respiratory: No Immunizations Current: Yes Migraines: Yes Myocardial Infarction: No Renal Failure: No Seizures: No Sleep Apnea: No Thyroid Disease: No Ulcer: No Past Surgical History Abdominal Surgery: Yes (hernia RIGHT GROIN) AICD: No Body Medical Devices: metal in jaw and r wrist, RIGHT KIDNEY STENT Cardiac Surgery: No Ear Surgery: Yes Endocrine Surgery: No Eye Surgery: No Genitourinary Surgery: Yes (lithotripsy X 2, STENT) Gynecologic Surgery: No Joint Replacement: No Neurologic Surgery: No Oral Surgery: Yes (fx. jaw 2005) Pacemaker: No Thoracic Surgery: No Tonsillectomy: Yes Other Surgery: Yes (PINS AND PLATE IN BILATERAL WRIST) Social History Alcohol Use: Yes (RARELY ) Tobacco Use: Yes Substance Use: Yes Allergies-Medications (Allergen,Severity, Reaction): Coded Allergies: morphine (Unverified Allergy, Mild, rash, 12/08/17) *MDRO Multi-Drug Resistant Organism (Verified Adverse Reaction, Unknown, ) MRSA (leg) 05/05/17 Uncoded Allergies: icy hot (Adverse Reaction, Mild, Rash., 06/12/16) Reported Meds & Prescriptions Reported Meds & Active Scripts Active Penicillin V Potassium 500 Mg Tab 500 Mg PO Q6H 7 Days Ibuprofen 800 Mg Tab 800 Mg PO Q8H PRN Levaquin (Levofloxacin) 750 Mg Tablet 750 Mg PO DAILY Ibuprofen 800 Mg Tab 800 Mg PO Q8H PRN Bactrim DS (Sulfamethoxazole-Trimethoprim) 800-160 Mg Tab 1 Tab PO BID Review of Systems Except as stated in HPI: all other systems reviewed are Neg Physical Exam Narrative GENERAL: Well-nourished, well-developed male in no acute distress. SKIN: Warm and dry. HEAD: Normocephalic. Atraumatic. Edema on the left jaw. EYES: No scleral icterus. No injection or drainage. PERRLA. EOMI. ENT: Pearly farrar tympanic membranes bilaterally. Nasal mucosa is moist. Oropharynx without erythema, edema or exudate. Uvula midline. Airway patent. DENTAL: Fair dentition overall. Tooth #31 has a large dental caries. Tooth # 20 has a smaller dental caries to the pulp. Surrounding ecchymosis tender, erythematous. NECK: Supple, trachea midline. No JVD or lymphadenopathy. CARDIOVASCULAR: Regular rate and rhythm without murmurs, gallops, or rubs. RESPIRATORY: Breath sounds clear and equal bilaterally. No accessory muscle use. GASTROINTESTINAL: Abdomen soft, non-tender, nondistended. + Bowel sounds MUSCULOSKELETAL: No cyanosis, or edema. BACK: Nontender without obvious deformity. Data Data Last Documented VS Vital Signs Date Time Temp Pulse Resp B/P (MAP) Pulse Ox O2 Delivery O2 Flow Rate FiO2 12/08/17 14:28 98.7 87 14 133/74 (93) 99 Room Air Orders Orders Acetamin-Hydrocod 325-5 Mg (Bronaugh 5-325 (12/08/17 17:00) Ed Discharge Order (12/08/17 16:56) MDM Medical Decision Making Medical Screen Exam Complete: Yes Emergency Medical Condition: Yes Differential Diagnosis Dental caries versus dental abscess versus cellulitis versus other Narrative Course 32-year-old male presents to the ED for evaluation of 9 out of 10 left-sided dental pain. Pain is throbbing, radiates under the left eye. Onset this morning upon waking. Patient states that he has a cracked tooth in the area but has not had any problems until today. Patient afebrile on presentation. On physical exam he has some facial swelling and a dental caries in the tooth 20. Surrounding mucosa is tender, erythematous and edematous. No drainable abscess noted. Patient was administered 5 mg Bronaugh. He is prescribed penicillin VK 500 mg 4 times a day 7 days and short course of anti- inflammatories. He is instructed to follow with the dentist and provided with community resources. He is stable and discharged home. Diagnosis Primary Impression: Dental caries Additional Impression: Dental abscess Referrals: Dentist Patient Instructions: Dental Abscess (ED), Dental Caries (ED), General Instructions Additional Instructions: Rest, hydrate. Begin the antibiotics today and take them until every pill is gone. 800 mg ibuprofen up to 3 times a day as needed for pain. Warm salt water gargles may also help to improve your pain symptoms. Follow-up with a dentist. Return to ED for any urgent or emergent medical condition. Med/Other Pt SpecificInfo: Prescription(s) given Scripts Penicillin V Potassium (Penicillin V Potassium) 500 Mg Tab 500 MG PO Q6H for Infection for 7 Days, #28 TAB 0 Refills Prov: Hunter Concepcion MD 12/08/17 Ibuprofen (Ibuprofen) 800 Mg Tab 800 MG PO Q8H Y for Pain/Inflammation, #15 TAB 0 Refills Prov: Hunter Cnocepcion MD 12/08/17 Disposition: 01 DISCHARGE HOME Condition: Stable Coby Chaparro Dec 08, 2017 16:55
[2017-12-08] MEDS ORDERED: IBUP1TAB7 PO (16:56)
[2017-12-08] MEDS ORDERED: PENI500T PO (16:56)
[2017-12-08] MEDS ORDERED: ACETAMINOPHEN/HYDROcodone 325 MG/5 MG TAB PO ONE (17:00)
== END 2017-12-08 17:19 | disposition home or self-care (01) ==
LOC: NEPK 14:16
DX: K02.9 Dental caries, unspecified (principal); K04.7 Periapical abscess without sinus; Z72.0 Tobacco use
CPT/HCPCS: 99283